=== PATIENT | male | born 1960 | race African-American/Black ===

== ENCOUNTER 2020-06-25 09:54 | Emergency (ER) | payer OTHER, MEDICARE, SELFPAY ==
[2020-06-25 10:12] VITALS: BP 176/110; PULSE 82; RESP 18; TEMP 37.2; O2SAT 95; BMI 28.3
--- NOTE | 2020-06-25 10:51 | ED.NECK ---
HPI - Neck Pain/Injury General Chief Complaint: Neck Pain/Injury Stated Complaint: NECK PAIN Time Seen by Provider: 06/25/20 10:51 History of Present Illness HPI Narrative: Patient complains of neck pain and stiffness for 2 nights, does not recall any injury has no numbness weakness tingling or changes to bowel or bladder He takes methadone and used to be a IV drug abuser but he says it is many many years since he used IV drugs Related Data Home Medications Medication Instructions Recorded Confirmed albuterol sulfate [ProAir HFA] 2 puff INHALATION QID PRN 06/28/20 06/28/20 atenolol 100 mg PO BEDTIME 06/28/20 06/28/20 fluticasone propionate 1 spray INTRANASAL BID 06/28/20 06/28/20 gabapentin 100 mg PO BID 06/28/20 06/28/20 ibuprofen 400 mg PO BID PRN 06/28/20 06/28/20 lidocaine 1 patch TOPICAL DAILY 06/28/20 06/28/20 methadone 57 mg PO DAILY 06/28/20 06/28/20 mirtazapine 15 mg PO BEDTIME 06/28/20 06/28/20 Previous Rx's Medication Instructions Recorded ceftriaxone 1 g IV Q24H #10 ea 06/28/20 morphine 2 mg IV Q6H PRN #25 ml 06/28/20 vancomycin 995 mg IV Q12H #10 ea 06/28/20 Allergies Allergy/AdvReac Type Severity Reaction Status Date / Time No Known Allergies Allergy Verified 06/25/20 10:15 Review of Systems Review of Systems: Positives are neck pain around the middle of his neck worse with movement Negatives are no fever no chills no dizziness no weakness no radiation of pain no numbness weakness or tingling no changes to bowel or bladder no chest pain no shortness of breath no rash PMFSH Past Medical History Source: nursing notes reviewed Medical History Antisocial personality disorder Anxiety COPD (chronic obstructive pulmonary disease) Depression Hepatitis High blood pressure Social History Social History Household Members: None Housing: Apartment Smoking Status: Former smoker Substance Use Type: IV Drugs service: Yes Current occupational status: disabled Physical Exam Vital Signs: Vital Signs: Last Vital Signs Temp 99.0 F 06/25/20 10:12 Pulse 82 06/25/20 10:12 Resp 18 06/25/20 11:34 BP 176/110 H 06/25/20 10:12 Pulse Ox 95 06/25/20 10:12 Body Mass Index 28.3 General appearance is no acute distress, common cooperative The head is normocephalic atraumatic The neck is supple but there is tenderness over the posterior neck diffusely, there is no redness no warmth The chest is clear to auscultation bilaterally with full symmetric E breath sounds Heart no murmur Abdomen soft nontender Extremities is full range of motion x4 Skin no rash 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 strength is 5/5 in both hands The gait and balance are normal, sensation is intact and symmetrical in extremities Cranial nerves 2-12 intact as examine Speech and comprehension are normal Course Course Course Narrative: Patient on methadone who denies having used IV drugs for many years It is explained that we are not the police and if he has been using IV drugs we need no as there is risk of infection or abscess if he is injecting IV drugs he again denies and patient is discharged with most likely musculoskeletal neck pain and given clear warnings to return for any new weakness tingling numbness or pain that is not controlled Discharge Plan Discharge Clinical Impression: Neck pain Patient Disposition: Home, Self-Care Additional Instructions: Follow with your doctor at the [place] as physical therapy may be helpful Return any time any worse condition or any concerns especially if you develops numbness or weakness in either arm or any changes to bowel or bladder Prescriptions: No Action atenolol 100 mg Tablet 100 mg PO BEDTIME RF: 0 mirtazapine 30 mg Tablet 15 mg PO BEDTIME RF: 0 lidocaine 5 % Adhesive Patch,Medicated 1 patch TOPICAL DAILY RF: 0 ibuprofen 400 mg Tablet 400 mg PO BID PRN (Reason: Pain (Scale Score 1-3)) RF: 0 gabapentin 100 mg Capsule 100 mg PO BID RF: 0 methadone 10 mg/mL Concentrate 57 mg PO DAILY RF: 0 albuterol sulfate [ProAir HFA] 90 mcg/actuation Hfa Aerosol Inhaler 2 puff INHALATION QID PRN (Reason: Shortness Of Breath) RF: 0 fluticasone propionate 50 mcg/actuation [place],Suspension 1 spray INTRANASAL BID RF: 0 ceftriaxone 1 gram Recon Soln 1 g IV Q24H Qty: 10 RF: 0 vancomycin 1,000 mg recon soln 995 mg IV Q12H Qty: 10 RF: 0 morphine 2 mg/mL solution 2 mg IV Q6H PRN (Reason: pain) Qty: 25 RF: 0 Interventions: ED Discharge Assessment Last Done: 06/25/20 11:37 Discharge Date/Time: 06/25/20 11:39
[2020-06-25] MEDS: Ketorolac Tromethamine 30 MG/ML VIAL IM (11:06)
[2020-06-25] MEDS: diazePAM 5 MG TABLET 10 MG PO (11:06)
[2020-06-25 11:34] VITALS: RESP 18
--- NOTE | 2020-06-25 11:34 | PC.NURSE ---
PT DOES NOT WANT TO STAY FOR CT SCAN. PT STATES THE MEDS ARE HELPING WITH THE PAIN AT THIS TIME. PT HAS A RIDE COMING AND DOES NOT WANT TO MISS HIS RIDE HOME.
== END 2020-06-25 11:39 | disposition home or self-care (01) ==
PROVIDERS: Emergency Provider Emergency Medicine
DX: M54.2 Cervicalgia (principal)
CPT/HCPCS: 96372; 99283; 99284; J1885

== ENCOUNTER 2020-06-27 15:14 | Inpatient (IN) | payer OTHER, MEDICARE, SELFPAY ==
--- NOTE | ~2020-06-27 | MR_ITS ---
EXAMINATION: MR CERVICAL SPINE WITHOUT AND WITH CONTRAST CLINICAL INFORMATION: History of drug abuse. Neck pain. COMPARISON: Cervical spine CT scan 06/27/2020. TECHNIQUE: Multiplanar MR imaging of the cervical spine was performed without and with contrast. A total of 8 mL Gadavist was utilized for this examination. FINDINGS: There is abnormal thickening and phlegmonous enhancement within the prevertebral soft tissues extending from C1 to C6 without evidence of a discrete drainable fluid collection. The source of disease is difficult to accurately characterize on this examination. Possible involvement of the intervertebral disc space at C4-C5 with associated edema and enhancement of the adjoining endplates along the left anterolateral aspect of the vertebral bodies best illustrated on sagittal postcontrast image 9 of 16 series 8. Alignment is otherwise normal. Vertebral heights are preserved. There is loss of intervertebral disc height and T2 signal intensity at multiple levels within the mid to lower cervical spine. The cervicomedullary junction is normal. Limited visualization of the posterior fossa reveals no abnormal finding. Occipital condyles and lateral C1 masses are intact. Atlantodental joint is normal. C1-C2 articular facets are unremarkable. At C2-C3 the annular contour is normal. No canal or neuroforaminal compromise. At C3-C4 there is a slightly bulging disc. No canal stenosis. Uncovertebral joint spurring and facet degenerative change causes mild to moderate bilateral neuroforaminal encroachment. At C4-C5 there is a diffusely bulging disc which in conjunction with phlegmonous epidural enhancement causes complete effacement of subarachnoid space and severe canal stenosis with apparent compression of the cervical spinal cord. Equivocally increased intramedullary T2 signal changes at this level may represent a manifestation of edema. Severe bilateral neuroforaminal encroachment. At C5-C6 there is a diffusely bulging disc which in conjunction with phlegmonous epidural enhancement causes severe canal stenosis with apparent compression of the cervical spinal cord. Equivocal intramedullary signal changes. Severe bilateral neuroforaminal encroachment. At C6-C7 there is a diffusely bulging disc. Moderate to severe canal stenosis. Uncovertebral joint spurring and facet degenerative change causes severe bilateral neuroforaminal encroachment. At C7-T1 there is a slightly bulging disc. Mild canal stenosis. Uncovertebral joint spurring and facet degenerative change causes moderate bilateral neuroforaminal encroachment. MR/MR cervical spine wo/w con IMPRESSION: There multiple abnormal findings that indicate the likelihood of a spinal infection with abnormal phlegmonous enhancement located within the prevertebral soft tissues extending from C1 to C6. Possible involvement of the C4-C5 intervertebral disc space. There is also circumferential phlegmonous epidural enhancement within the spinal canal which in conjunction with advanced degenerative spondylosis causes severe canal stenosis at C4-C5 and C5-C6 with apparent compression of the cervical spinal cord at these 2 levels. There are equivocally edema and/or myelomalacia involving the cervical cord at C4-C5 and C5-C6. Moderate to severe canal stenosis at C6-C7.
--- NOTE | ~2020-06-27 | CT_ITS ---
EXAMINATION: CT ANGIOGRAM OF THE CHEST WITH AND WITHOUT CONTRAST (CT PULMONARY ANGIOGRAM FOR PE) CLINICAL INFORMATION: Reason for Exam Short of breath elevated D-dimer COMPARISON: None TECHNIQUE: Prior to contrast administration, noncontrast localization images were obtained. Subsequently, multidetector volumetric imaging was performed from the thoracic inlet to below the diaphragms following the administration of 95 mL Omnipaque 350 intravenous contrast. No contrast reaction reported Sagittal, coronal, and MIP oblique sagittal reformatted images were obtained on the CT workstation, uploaded to PACS, and reviewed. This CT examination was performed using dose optimization techniques as appropriate, variously including the following: *Automated exposure control *Adjustment of mA and/or kV according to patient size (this includes techniques or standardized protocols for targeted exams where dose is matched to indication/reason for exam; i.e. extremities or head) *Use of iterative reconstruction technique Total exam dose-length product 337 mGy-cm FINDINGS: QUALITY OF STUDY/CONTRAST BOLUS: Satisfactory. PULMONARY ARTERIES: No central or segmental pulmonary emboli. THORACIC AORTA: No aneurysm or dissection. LUNG: Some bullous changes are present in the upper lung zones and apices. There is one area in the right upper lobe which appears quite bronchiectatic with multiple cysts which could be a focal area of bronchiectasis. In the left upper lobe there is a density which represents mucous impacted in a bronchus (28:120). No worrisome lung masses are seen. Atelectasis is present at the left lung base PLEURA: No pleural effusion or pneumothorax. MEDIASTINUM: Normal heart size. No pericardial effusion. No hilar or mediastinal lymphadenopathy. No evidence of septal bowing or right heart strain. CHEST WALL/AXILLA: No axillary or internal mammary lymphadenopathy. OSSEOUS STRUCTURES: No acute or suspicious osseous abnormality. UPPER ABDOMEN: There is a 1.2 x 0.7 cm prominent right anterior preparacardiac lymph node. No reflux of contrast into the hepatic veins to suggest elevated right heart pressures. CT/CT angio chest PE protocol IMPRESSION: 1. No evidence of pulmonary emboli 2. Underlying COPD with areas of bronchiectasis in the right upper lobe 3. No other etiology is seen to account for the patient's shortness of breath. VTE: The
--- NOTE | ~2020-06-27 | XR_ITS ---
EXAMINATION: XR CHEST CLINICAL INFORMATION: Cough and fever COMPARISON: None TECHNIQUE: Frontal view of the chest was obtained. FINDINGS: The lungs are well expanded. Minimal opacity at the left lung base. No pleural effusion or pneumothorax. No edema. The cardiomediastinal silhouette is within normal limits. XR/XR chest 1V IMPRESSION: Minimal left basilar opacity could represent atelectasis or pneumonia.
--- NOTE | ~2020-06-27 | CT_ITS ---
EXAM: Noncontrast CT scan of the head and cervical spine. INDICATION: Altered mental status and neck pain. History of IV drug abuse. COMPARISON: None TECHNIQUE: Axial slices were obtained from skull base to vertex and displayed. This was followed by helical, multislice, multidetector axial images from the occiput to the upper thorax. Coronal and sagittal reformats of the cervical spine in addition to coronal reformats of the head were obtained at the technologist workstation. DLP: 1246 mGy-cm FINDINGS: HEAD: There is no evidence of acute intracranial hemorrhage or territorial infarction. No abnormal mass effect or midline shift is appreciated. Lainez-white differentiation is well preserved. No extra-axial fluid collections. The ventricular system and cortical sulci are prominent, consistent with age-appropriate volume loss. There are mild areas of low density in the periventricular and subcortical white matter, most consistent with sequelae of microvascular ischemic change. The osseous structures and soft tissues are normal. Prominent ethmoidal sinus disease with mucosal thickening of the sphenoid sinus. Other visualized paranasal sinuses and mastoid air cells are well aerated. SPINE: The cervical spine is visualized in its entirety. There is straightening of the normal cervical lordosis. Alignment is otherwise unremarkable. Normal C1/C2 articulation. Vertebral body heights are maintained. Disc spaces demonstrate moderate narrowing at C4/C5, C5/C6 and C6/C7. There are associated endplate erosions and sclerotic changes. A few small anterior aspects are noted also at these levels. There is only mild facet hypertrophy diffusely. No prevertebral soft tissue swelling. Visualized lung apices demonstrate emphysematous changes. CT/CT cervical spine w con IMPRESSION: 1. No acute intracranial pathology. 2. No fractures or dislocations of the cervical spine. 3. Mild sinus disease. 4. Moderate degenerative changes of the cervical spine centered at C4-C6. This CT examination was performed using dose optimization techniques as appropriate, variously including the following: *Automated exposure control *Adjustment of mA and/or kV according to patient size (this includes techniques or standardized protocols for targeted exams where dose is matched to indication/reason for exam; i.e. extremities or head) *Use of iterative reconstruction technique
[2020-06-27 15:45] VITALS: BP 166/106; PULSE 103; RESP 16; TEMP 39.1; O2SAT 94; BMI 28.2
--- NOTE | 2020-06-27 16:17 | ED_ITS ---
HPI - Fever General Chief Complaint: Fever Stated Complaint: neck pain Time Seen by Provider: 06/27/20 16:17 Source: patient Mode of arrival: ambulatory Limitations: altered mental status (confusion) History of Present Illness HPI Narrative: Patient with not feeling good for last 4 days having neck pain started on the left side now has gone to the right side says the pain is going down in the neck all the way to the lower back and have some weakness in the hands patient is very poor historian , now he has fever and congestion with dry cough and slight short of breath. Patient was [facility] 06[facility]25 diagnosed as musculoskeletal neck pain at that time was afebrile. Patient received COVID vaccine 2 weeks prior patient denies any focal weakness no nausea no vomiting no diarrhea no other family member is sick no history of any injury, patient IV drug user last time use was 1 month ago patient denied use of any cocaine MD elicited complaint: fever Related Data Previous Rx's Medication Instructions Recorded acetaminophen 1,000 mg PO Q6H PRN #30 tab 06/25/20 diazepam [Valium] 10 mg PO TID PRN #10 tab 06/25/20 naproxen [Naprosyn] 500 mg PO BID PRN #20 tab 06/25/20 Allergies Allergy/AdvReac Type Severity Reaction Status Date / Time No Known Allergies Allergy Verified 06/25/20 10:15 Review of Systems Review of Systems: Constitutional : No Weight loss, No Fever, No Chills ENT/Mouth : No sore throat, No Rhinorrhea Eyes: No Eye Pain, No Swelling Cardiovascular : No Chest Pain, no palpitations Respiratory : No Cough, No Sputum, no shortness of breath Gastrointestinal : no Nausea, No Vomiting, No Diarrhea, No abdominal Pain, no black stools Genitourinary : No Dysuria, No Urinary Frequency Musculoskeletal : No joint pain, + Myalgias, No Joint Swelling Skin : No Skin Lesions, No rash Neuro : ++Weakness, No Numbness, No Dizziness, No Headache Psych : No Anxiety/Panic, No Depression Heme/Lymph: No Bruising, No Lymphadenopathy Endocrine : No Polyuria, No Polydipsia All other systems reviewed and are negative [facility] Past Medical History Medical History (Updated 06/28/20 @ 01:34 by Ozzie Gonzales MD) Antisocial personality disorder Anxiety COPD (chronic obstructive pulmonary disease) Depression Hepatitis High blood pressure Social History Social History Smoking Status: Former smoker Use of substances other than those prescribed or required for medical reasons: No Advance Directives: No Advance Directives Information Provided: No Physical Exam Vital Signs: Vital Signs: Last Vital Signs Temp 101.7 F H 06/28/20 01:42 Pulse 84 06/28/20 01:42 Resp 16 06/28/20 00:00 BP 142/79 H 06/28/20 01:42 Pulse Ox 98 06/28/20 01:42 Body Mass Index 28.2 Const: General: ill appearing, lethargic and tired appearing Nutritional Appearance: well nourished Orientation/consciousness: patient oriented x3 and lethargic Limitations: altered mental status HENMT: Head: Yes normal to inspection, Yes normocephalic and Yes atraumatic Ears: hearing grossly normal bilaterally General nose exam: Normal external nose present Face and sinus: Yes normal facial exam Mouth: Normal oral and palatal mucosa present Teeth and gingiva: dentition normal Throat: Yes p osterior oropharynx normal Eyes: General: appearance normal, both eyes and all related structures Neck: Neck: Yes normal visual inspection, Yes no lymphadenopathy, Yes trachea midline, No positive Brudzinski's sign and Yes positive Kernig's sign (Spasm of the neck muscle) Chest: Chest palpation & inspection: normal inspection of the chest and normal palpation of entire chest wall Resp: Effort & Inspection: normal respiratory effort Auscultation: clear to auscultation bilaterally, no crackles, no rales, no rhonchi and no wheezes Cardio: Jugular venous distension: no JVD Palpation: normal PMI Rate: regular rate Rhythm: regular rhythm Heart sounds: S1 normal heart sound present and S2 normal heart sound present Peripheral pulses: Peripheral pulses 2+ throughout GI: Inspection: Yes normal to inspection Palpation (GI): Soft to palpation and nontender Auscultation: normal bowel sounds : General: Yes no CVA tenderness Back/Spine/Pelvis: Back: no CVA tenderness Thoracic/Lumbar Spine: thoracic and lumbar spine normal to inspection, straight leg raise negative bilaterally, No paraspinal muscle tenderness, No thoracic spinal tenderness and No lumbar spinal tenderness Skin: General skin exam: no rashes or lesions noted Neuro: Other: DTR 2+ bilateral General: patient oriented x3, moves all extremities, Normal light touch and pain sensation, no focal motor deficits and CN's II-XI intact bilaterally Cranial nerves: Yes Nystagmus not present and Yes Normal facial strength present Motor exam (neuro): 5/5 motor strength present throughout and Pronator motor function not present Deep tendon reflexes (DTR's): Rt Biceps (C5, C6): 2+, Left biceps reflex intensity grade: 2+, Right brachioradialis reflex intensity grade: 2+ and Left brachioradialis reflex intensity grade: 2+ Plantar Reflex Responses: downgoing: right and left Course Reevaluation(s) Reevaluation #1: Patient denies any chest pain repeat EKG showed positive for Scarbossa criteria with definite change in V3 lead with ST depression which has changed from the previous EKG. Patient denies any chest pain case discussed with Dr. Morgan prosthodontist no need for anticoagulation or transfer at this time patient EKG changes likely from infective cause do the serial troponin levels patient already received bolus dose of heparin Time: 01:50 Procedures Lumbar Puncture Time Out Performed: Yes Patient Position: upright Skin Prep: Povidone-Iodine 1% Local Anesthetic: lidocaine 1% Spinal Needle Gauge: 22G Interspace Used: L3-L4 Fluid Initially Obtained: clear Complications: none MDM - Fever MDM Narrative Medical decision making narrative: Patient is 4 days of atraumatic neck pain mostly localized to sites of the neck able to flex his neck meningeal signs are negative but still complaining of pain with history of history of IV drug use unable to get MRI at this time will do CT neck with IV contrast. To rule out epidural abscess/inflammation although less likely with normal blood counts . Patient WBC count are normal normal lactic acid level. Will do spinal tap to rule out meningitis questionable herpes chest x-ray showed left lower lobe infiltrate a given Rocephin and Zithromax 2200: CT scan without any fluid collection normal WBC count were CSF showed increased protein levels and neutrophils preliminary Gram stain is negative will start him on vancomycin give extra dose of Rocephin pending final results 0030: Case discussed with neurosurgeon at [facility] at this time patient does not need urgent MRI tonight as patient does not have any Myelocompression signs 01:20: Patient sed rate is 70 troponin is 454 without any chest pain or EKG changes will admit patient for medical treatment for possible epidural abscess/meningitis and get MRI in the morning will start patient on heparin prophylactically I Considered epidural abscess/meningitis as a cause of neck pain Differential Diagnosis Differential diagnosis: Likely fever of unknown origin, community acquired pneumonia and viral infection Medical Records Attestation: I reviewed the patient's medical records. Lab Data Attestation: I reviewed the patient's lab results. Result diagrams: 06/27/20 17:33 06/27/20 19:09 Labs: Lab Results 06/27/20 06/27/20 06/27/20 Range/Units 16:58 17:33 17:33 WBC 9.9 (4.8-10.8) X10*3/uL RBC 4.34 L (4.60-5.80) X10*6/uL Hgb 12.7 L (14.0-18.0) g/dl Hct 37.4 L (42-52) % MCV 86.2 (80-98) fL MCH 29.3 (27.0-33.0) pg MCHC 34.0 (31.0-36.0) g/dl RDW 13.2 (11.0-16.0) % Plt Count 135 L (160-400) X10*3/uL MPV 10.7 (9.4-12.4) fL Immature Gran % (Auto) 0.6 H (0.0-0.4) % Neut % (Auto) 81.3 H (45-73) % Lymph % (Auto) 7.2 L (20-40) % Bowman % (Auto) 10.8 (2-11) % Eos % (Auto) 0.0 (0-4) % Baso % (Auto) 0.1 (0-2) % Lymph # (Auto) 0.7 L (1.2-4.9) X10*3/uL Bowman # (Auto) 1.1 (0.1-1.2) X10*3/uL Eos # (Auto) 0.0 (0.0-0.4) X10*3/uL Baso # (Auto) 0.0 (0.0-0.2) X10*3/uL Abs Immat Gran (auto) 0.06 H (0.00-0.03) X10*3/uL Absolute Neuts (auto) 8.1 (2.0-8.3) X10*3/uL Absolute Nucleated RBC 0.000 (0.0-0.012) X10*3/uL Nucleated RBC % (auto) 0.0 (0.0-0.2) /100WBC ESR PT (10.8-13.0) SEC INR (0.9-1.1) APTT (24.1-38.0) SEC D-Dimer NG/ML Sodium (135-145) mmol/L Potassium (3.3-5.1) mmol/L Chloride (96-108) mmol/L Carbon Dioxide (22-29) mmol/L Anion Gap (12-20) BUN (9-16) mg/dL Creatinine (0.5-1.4) mg/dL Estim Creat Clear Calc Estimated GFR Random Glucose (60-115) mg/dL Lactic Acid 1.3 (0.5-2.0) mmol/L Calcium (8.4-10.2) mg/dL Total Bilirubin (0.0-1.0) mg/dL Direct Bilirubin (0.0-0.5) mg/dL AST (5-37) U/L ALT (0-40) U/L Alkaline Phosphatase (39-117) U/L Lactate Dehydrogenase (118-273) U/L Troponin I High Sens (<3.5-35.0) ng/L C-Reactive Protein (< or = 0.50) mg/dL B-Natriuretic Peptide (<100) pg/mL Total Protein (6.5-8.0) g/dL Albumin (3.5-5.0) g/dL Procalcitonin ng/mL CSF Tube Number CSF Volume ML CSF Appearance CSF Color CSF WBC MM*3 CSF RBC MM*3 CSF Neutrophils % CSF Lymphocytes % CSF Monocytes % % CSF Appearance (b) CSF Glucose mg/dL CSF Total Protein (15-45) mg/dL Coronavirus (PCR) NEGATIVE (Negative) Influenza Type A (PCR) NEGATIVE (Negative) Influenza Type B (PCR) NEGATIVE (Negative) RSV RNA Qual (PCR) NEGATIVE (Negative) 06/27/20 06/27/20 06/27/20 Range/Units 17:33 17:33 17:33 WBC (4.8-10.8) X10*3/uL RBC (4.60-5.80) X10*6/uL Hgb (14.0-18.0) g/dl Hct (42-52) % MCV (80-98) fL MCH (27.0-33.0) pg MCHC (31.0-36.0) g/dl RDW (11.0-16.0) % Plt Count (160-400) X10*3/uL MPV (9.4-12.4) fL Immature Gran % (Auto) (0.0-0.4) % Neut % (Auto) (45-73) % Lymph % (Auto) (20-40) % Bowman % (Auto) (2-11) % Eos % (Auto) (0-4) % Baso % (Auto) (0-2) % Lymph # (Auto) (1.2-4.9) X10*3/uL Bowman # (Auto) (0.1-1.2) X10*3/uL Eos # (Auto) (0.0-0.4) X10*3/uL Baso # (Auto) (0.0-0.2) X10*3/uL Abs Immat Gran (auto) (0.00-0.03) X10*3/uL Absolute Neuts (auto) (2.0-8.3) X10*3/uL Absolute Nucleated RBC (0.0-0.012) X10*3/uL Nucleated RBC % (auto) (0.0-0.2) /100WBC ESR Cancelled PT (10.8-13.0) SEC INR (0.9-1.1) APTT (24.1-38.0) SEC D-Dimer NG/ML Sodium (135-145) mmol/L Potassium (3.3-5.1) mmol/L Chloride (96-108) mmol/L Carbon Dioxide (22-29) mmol/L Anion Gap (12-20) BUN (9-16) mg/dL Creatinine (0.5-1.4) mg/dL Estim Creat Clear Calc Estimated GFR Random Glucose (60-115) mg/dL Lactic Acid (0.5-2.0) mmol/L Calcium (8.4-10.2) mg/dL Total Bilirubin (0.0-1.0) mg/dL Direct Bilirubin (0.0-0.5) mg/dL AST (5-37) U/L ALT (0-40) U/L Alkaline Phosphatase (39-117) U/L Lactate Dehydrogenase (118-273) U/L Troponin I High Sens 343.2 H (<3.5-35.0) ng/L C-Reactive Protein (< or = 0.50) mg/dL B-Natriuretic Peptide 788 H (<100) pg/mL Total Protein (6.5-8.0) g/dL Albumin (3.5-5.0) g/dL Procalcitonin 0.44 ng/mL CSF Tube Number CSF Volume ML CSF Appearance CSF Color CSF WBC MM*3 CSF RBC MM*3 CSF Neutrophils % CSF Lymphocytes % CSF Monocytes % % CSF Appearance (b) CSF Glucose mg/dL CSF Total Protein (15-45) mg/dL Coronavirus (PCR) (Negative) Influenza Type A (PCR) (Negative) Influenza Type B (PCR) (Negative) RSV RNA Qual (PCR) (Negative) 06/27/20 06/27/20 06/27/20 Range/Units 19:09 19:09 20:44 WBC (4.8-10.8) X10*3/uL RBC (4.60-5.80) X10*6/uL Hgb (14.0-18.0) g/dl Hct (42-52) % MCV (80-98) fL MCH (27.0-33.0) pg MCHC (31.0-36.0) g/dl RDW (11.0-16.0) % Plt Count (160-400) X10*3/uL MPV (9.4-12.4) fL Immature Gran % (Auto) (0.0-0.4) % Neut % (Auto) (45-73) % Lymph % (Auto) (20-40) % Bowman % (Auto) (2-11) % Eos % (Auto) (0-4) % Baso % (Auto) (0-2) % Lymph # (Auto) (1.2-4.9) X10*3/uL Bowman # (Auto) (0.1-1.2) X10*3/uL Eos # (Auto) (0.0-0.4) X10*3/uL Baso # (Auto) (0.0-0.2) X10*3/uL Abs Immat Gran (auto) (0.00-0.03) X10*3/uL Absolute Neuts (auto) (2.0-8.3) X10*3/uL Absolute Nucleated RBC (0.0-0.012) X10*3/uL Nucleated RBC % (auto) (0.0-0.2) /100WBC ESR PT 16.3 H (10.8-13.0) SEC INR 1.4 H (0.9-1.1) APTT 25.3 (24.1-38.0) SEC D-Dimer 2316 NG/ML Sodium 132 L (135-145) mmol/L Potassium 3.2 L (3.3-5.1) mmol/L Chloride 99 (96-108) mmol/L Carbon Dioxide 22 (22-29) mmol/L Anion Gap 14 (12-20) BUN 15 (9-16) mg/dL Creatinine 0.84 (0.5-1.4) mg/dL Estim Creat Clear Calc 91.4 Estimated GFR > 60 Random Glucose 108 (60-115) mg/dL Lactic Acid (0.5-2.0) mmol/L Calcium 7.7 L (8.4-10.2) mg/dL Total Bilirubin 0.6 (0.0-1.0) mg/dL Direct Bilirubin 0.3 (0.0-0.5) mg/dL AST 57 H (5-37) U/L ALT 14 (0-40) U/L Alkaline Phosphatase 55 (39-117) U/L Lactate Dehydrogenase 232 (118-273) U/L Troponin I High Sens (<3.5-35.0) ng/L C-Reactive Protein 13.48 H (< or = 0.50) mg/dL B-Natriuretic Peptide (<100) pg/mL Total Protein 6.7 (6.5-8.0) g/dL Albumin 3.3 L (3.5-5.0) g/dL Procalcitonin ng/mL CSF Tube Number 2 CSF Volume ML CSF Appearance CSF Color CSF WBC MM*3 CSF RBC MM*3 CSF Neutrophils % CSF Lymphocytes % CSF Monocytes % % CSF Appearance (b) Clear, Colorless CSF Glucose 52 mg/dL CSF Total Protein 134.6 H (15-45) mg/dL Coronavirus (PCR) (Negative) Influenza Type A (PCR) (Negative) Influenza Type B (PCR) (Negative) RSV RNA Qual (PCR) (Negative) 06/27/20 06/27/20 06/27/20 Range/Units 20:44 20:44 23:58 WBC (4.8-10.8) X10*3/uL RBC (4.60-5.80) X10*6/uL Hgb (14.0-18.0) g/dl Hct (42-52) % MCV (80-98) fL MCH (27.0-33.0) pg MCHC (31.0-36.0) g/dl RDW (11.0-16.0) % Plt Count (160-400) X10*3/uL MPV (9.4-12.4) fL Immature Gran % (Auto) (0.0-0.4) % Neut % (Auto) (45-73) % Lymph % (Auto) (20-40) % Bowman % (Auto) (2-11) % Eos % (Auto) (0-4) % Baso % (Auto) (0-2) % Lymph # (Auto) (1.2-4.9) X10*3/uL Bowman # (Auto) (0.1-1.2) X10*3/uL Eos # (Auto) (0.0-0.4) X10*3/uL Baso # (Auto) (0.0-0.2) X10*3/uL Abs Immat Gran (auto) (0.00-0.03) X10*3/uL Absolute Neuts (auto) (2.0-8.3) X10*3/uL Absolute Nucleated RBC (0.0-0.012) X10*3/uL Nucleated RBC % (auto) (0.0-0.2) /100WBC ESR 70 H PT (10.8-13.0) SEC INR (0.9-1.1) APTT (24.1-38.0) SEC D-Dimer NG/ML Sodium (135-145) mmol/L Potassium (3.3-5.1) mmol/L Chloride (96-108) mmol/L Carbon Dioxide (22-29) mmol/L Anion Gap (12-20) BUN (9-16) mg/dL Creatinine (0.5-1.4) mg/dL Estim Creat Clear Calc Estimated GFR Random Glucose (60-115) mg/dL Lactic Acid (0.5-2.0) mmol/L Calcium (8.4-10.2) mg/dL Total Bilirubin (0.0-1.0) mg/dL Direct Bilirubin (0.0-0.5) mg/dL AST (5-37) U/L ALT (0-40) U/L Alkaline Phosphatase (39-117) U/L Lactate Dehydrogenase (118-273) U/L Troponin I High Sens (<3.5-35.0) ng/L C-Reactive Protein (< or = 0.50) mg/dL B-Natriuretic Peptide (<100) pg/mL Total Protein (6.5-8.0) g/dL Albumin (3.5-5.0) g/dL Procalcitonin ng/mL CSF Tube Number 1 4 CSF Volume 1.0 1.0 ML CSF Appearance CLEAR CLEAR CSF Color COLORLESS COLORLESS CSF WBC 24 H* 25 H* MM*3 CSF RBC 3 2 MM*3 CSF Neutrophils 95 97 % CSF Lymphocytes 3 0 % CSF Monocytes % 2 3 % CSF Appearance (b) CSF Glucose mg/dL CSF Total Protein (15-45) mg/dL Coronavirus (PCR) (Negative) Influenza Type A (PCR) (Negative) Influenza Type B (PCR) (Negative) RSV RNA Qual (PCR) (Negative) 06/27/20 Range/Units 23:58 WBC (4.8-10.8) X10*3/uL RBC (4.60-5.80) X10*6/uL Hgb (14.0-18.0) g/dl Hct (42-52) % MCV (80-98) fL MCH (27.0-33.0) pg MCHC (31.0-36.0) g/dl RDW (11.0-16.0) % Plt Count (160-400) X10*3/uL MPV (9.4-12.4) fL Immature Gran % (Auto) (0.0-0.4) % Neut % (Auto) (45-73) % Lymph % (Auto) (20-40) % Bowman % (Auto) (2-11) % Eos % (Auto) (0-4) % Baso % (Auto) (0-2) % Lymph # (Auto) (1.2-4.9) X10*3/uL Bowman # (Auto) (0.1-1.2) X10*3/uL Eos # (Auto) (0.0-0.4) X10*3/uL Baso # (Auto) (0.0-0.2) X10*3/uL Abs Immat Gran (auto) (0.00-0.03) X10*3/uL Absolute Neuts (auto) (2.0-8.3) X10*3/uL Absolute Nucleated RBC (0.0-0.012) X10*3/uL Nucleated RBC % (auto) (0.0-0.2) /100WBC ESR PT (10.8-13.0) SEC INR (0.9-1.1) APTT (24.1-38.0) SEC D-Dimer NG/ML Sodium (135-145) mmol/L Potassium (3.3-5.1) mmol/L Chloride (96-108) mmol/L Carbon Dioxide (22-29) mmol/L Anion Gap (12-20) BUN (9-16) mg/dL Creatinine (0.5-1.4) mg/dL Estim Creat Clear Calc Estimated GFR Random Glucose (60-115) mg/dL Lactic Acid (0.5-2.0) mmol/L Calcium (8.4-10.2) mg/dL Total Bilirubin (0.0-1.0) mg/dL Direct Bilirubin (0.0-0.5) mg/dL AST (5-37) U/L ALT (0-40) U/L Alkaline Phosphatase (39-117) U/L Lactate Dehydrogenase (118-273) U/L Troponin I High Sens 454.0 H (<3.5-35.0) ng/L C-Reactive Protein (< or = 0.50) mg/dL B-Natriuretic Peptide (<100) pg/mL Total Protein (6.5-8.0) g/dL Albumin (3.5-5.0) g/dL Procalcitonin ng/mL CSF Tube Number CSF Volume ML CSF Appearance CSF Color CSF WBC MM*3 CSF RBC MM*3 CSF Neutrophils % CSF Lymphocytes % CSF Monocytes % % CSF Appearance (b) CSF Glucose mg/dL CSF Total Protein (15-45) mg/dL Coronavirus (PCR) (Negative) Influenza Type A (PCR) (Negative) Influenza Type B (PCR) (Negative) RSV RNA Qual (PCR) (Negative) ECG Data ECG #1: Attestation: I personally reviewed and interpreted this ECG as follows: Interpretation: Normal sinus rhythm L bundle-branch block no acute ST elevation or depression suggestive of ischemia normal axis impression LBBB no acute ischemia ECG #2: Attestation: I personally reviewed and interpreted this ECG as follows: Interpretation: Normal sinus rhythm heart rate 84 beats per minute left bundle-branch block ST depression in lead V3 significant change from previous EKG suggestive of ischemia Critical Care Time Critical Care Time Critical Care Time: Yes Total Critical Care Time: 70 Attestation: I spent 70 minutes of critical care, with interventions, assessments, speaking to patient, consultants Discharge Plan Discharge Clinical Impression: Meningitis due to bacteria, Non-ST elevated myocardial infarction (non-STEMI) Bronchiectasis Qualifiers: Bronchiectasis type: with acute lower respiratory infection Qualified Code(s): J47.0 - Bronchiectasis with acute lower respiratory infection Patient Disposition: Admitted As Inpatient
--- NOTE | 2020-06-27 16:18 | ECG_ITS ---
Test Reason : SHORTNESS OF BREATH Blood Pressure : / mmHG Vent. Rate : 098 BPM Atrial Rate : 098 BPM P-R Int : 142 ms QRS Dur : 144 ms QT Int : 406 ms P-R-T Axes : 069 042 187 degrees QTc Int : 518 ms Normal sinus rhythm Possible Left atrial enlargement Left bundle branch block Abnormal ECG No previous ECGs available Referred By: Ozzie Gonzales Electronically Signed By:MIRELLA MCGEE MD
[2020-06-27] MEDS: Acetaminophen 325 MG TABLET 650 MG PO (17:08)
[2020-06-27] MEDS: 0.9 % Sodium Chloride 1,000 ML 999 ML IVCONT ×2 (17:40)
[2020-06-27] MEDS: Ketorolac Tromethamine 30 MG/ML VIAL IVPUSH (17:40)
[2020-06-27 17:41] VITALS: BP 157/96; PULSE 95; RESP 27; O2SAT 95
[2020-06-27 17:46] LABS: Basophils Percent Auto 0.1 % (0-2); Imm Gran Abs Auto 0.06 X10*3/uL (0.00-0.03); Imm Gran Pct Auto 0.6 % (0.0-0.4); PLT CLUMP 1; Red Cell Distribution Width 13.2 % (11.0-16.0); SCAN SMEAR FLAG 1
[2020-06-27 17:47] LABS: Hematocrit 37.4 % (42-52); Hemoglobin 12.7 g/dl (14.0-18.0); Lymphocytes Absolute Auto 0.7 X10*3/uL (1.2-4.9); Lymphocytes Percent Auto 7.2 % (20-40); Mean Corpuscular Hemoglobin 29.3 pg (27.0-33.0); Mean Corpuscular Volume 86.2 fL (80-98); Mean Platelet Volume 10.7 fL (9.4-12.4); Monocytes Absolute Auto 1.1 X10*3/uL (0.1-1.2); Monocytes Percent Auto 10.8 % (2-11); Neutrophils Absolute Auto 8.1 X10*3/uL (2.0-8.3); Neutrophils Percent Auto 81.3 % (45-73); Platelet Count 135 X10*3/uL (160-400); Red Blood Count 4.34 X10*6/uL (4.60-5.80); White Blood Count 9.9 X10*3/uL (4.8-10.8)
[2020-06-27 17:55] LABS: MANUAL DIFF FLAG NO
[2020-06-27] MEDS: cefTRIAXone sodium 1 GM in 0.9 % Sodium Chloride 50 ML IV ×2 (17:55→22:28)
[2020-06-27 18:02] LABS: Lactic Acid 1.3 mmol/L (0.5-2.0)
[2020-06-27 18:25] VITALS: BP 135/77; PULSE 81
[2020-06-27 18:25] LABS: B Type Natriuretic Peptide 788 pg/mL (<100); Troponin-I High Sensitivity 343.2 ng/L (<3.5-35.0)
[2020-06-27] MEDS: Azithromycin 500 MG in 0.9 % Sodium Chloride 250 ML 125 MG IV (18:44)
[2020-06-27 18:45] VITALS: BP 124/72; PULSE 83; RESP 15; TEMP 38.1; O2SAT 94
[2020-06-27 18:49] LABS: Influenza A PCR NEGATIVE (Negative); Influenza B PCR NEGATIVE (Negative); Resp Syncy Virus RNA Qual PCR NEGATIVE (Negative); SARS COV2 PCR INHOUSE NEGATIVE (Negative)
[2020-06-27 19:53] LABS: INTERNATIONAL NORM RATIO 1.4 (0.9-1.1); Prothrombin Time 16.3 SEC (10.8-13.0)
[2020-06-27 19:56] LABS: Partial Thromboplastin Time 25.3 SEC (24.1-38.0)
[2020-06-27 20:01] LABS: Alanine Aminotransferase 14 U/L (0-40); Albumin Level 3.3 g/dL (3.5-5.0); Alkaline Phosphatase 55 U/L (39-117); Anion Gap 14 (12-20); Aspartate Amino Transferase 57 U/L (5-37); Bilirubin Direct 0.3 mg/dL (0.0-0.5); Bilirubin Total 0.6 mg/dL (0.0-1.0); Blood Urea Nitrogen 15 mg/dL (9-16); C Reactive Protein 13.48 mg/dL (< or = 0.50); Calcium 7.7 mg/dL (8.4-10.2); Carbon Dioxide 22 mmol/L (22-29); Chloride 99 mmol/L (96-108); Creatinine Clr Calc Pharmacy 91.4; Estimated Glomerular Filt Rate > 60; Glucose Random 108 mg/dL (60-115); Lactate Dehydrogenase 232 U/L (118-273); Potassium 3.2 mmol/L (3.3-5.1); Sodium 132 mmol/L (135-145); Total Protein 6.7 g/dL (6.5-8.0)
[2020-06-27 20:20] LABS: D Dimer 2316 NG/ML
[2020-06-27 20:24] VITALS: BP 103/68; PULSE 74; RESP 14; TEMP 37.5; O2SAT 93
[2020-06-27 20:26] LABS: Procalcitonin 0.44 ng/mL
[2020-06-27] MEDS: iohexoL 350 MG/ML 100 ML INFUS..BTL IV (21:11)
[2020-06-27 21:28] LABS: Glucose CSF 52 mg/dL; Total Protein CSF 134.6 mg/dL (15-45)
[2020-06-27 22:00] VITALS: BP 121/80; PULSE 71; RESP 18; TEMP 37.7; O2SAT 94
[2020-06-27 22:04] LABS: CSF Appearance Clear, Colorless; CSF Tube # 2
[2020-06-27 22:24] LABS: Appearance CSF CLEAR; CSF Tube # 1; Color CSF COLORLESS
[2020-06-27 22:25] LABS: Red Blood Cell CSF 3 MM*3
[2020-06-27 22:28] LABS: White Blood Cell CSF 24 MM*3
[2020-06-27 22:30] LABS: Appearance CSF CLEAR; CSF Tube # 4; Color CSF COLORLESS; Red Blood Cell CSF 2 MM*3; White Blood Cell CSF 25 MM*3
[2020-06-27 22:37] LABS: CSF Monos 2 %; Lymphocytes CSF 3 %; Neutrophils CSF 95 %
[2020-06-27 22:40] LABS: Neutrophils CSF 97 %
[2020-06-27 22:43] LABS: CSF Monos 3 %
[2020-06-27 22:52] LABS: Lymphocytes CSF 0 %
--- NOTE | 2020-06-27 23:37 | PC.NURSE ---
@[id number] DR HOLLOWAY REQUESTS CALL OUT TO [facility] PT [place] LINE ON THIS PT GRAZYNA ANSWERS,TAKES PT INFO, CALL BACK NUMBER AND ASKS TO SPEAK WITH DR JEWEL HOLLOWAY TAKES OVER CALL RIGHT AWAY
[2020-06-27] MEDS: vancomycin HCL 1,000 MG in 0.9 % Sodium Chloride 250 ML 270 MG IV (23:41)
[2020-06-28] VITALS (7 sets, daily range): BP systolic 110–179; BP diastolic 71–98; PULSE 70–93; RESP 15–23; TEMP 37.3–38.7; O2SAT 94–99
--- NOTE | 2020-06-28 | ECG_ITS ---
Test Reason : BASELINE Blood Pressure : / mmHG Vent. Rate : 084 BPM Atrial Rate : 084 BPM P-R Int : 124 ms QRS Dur : 140 ms QT Int : 584 ms P-R-T Axes : 063 025 229 degrees QTc Int : 690 ms Normal sinus rhythm Possible Left atrial enlargement T wave inversion V3-V4 Deandre 27-JUN-2020 16:45, QT has lengthened Referred By: Ozzie Gonzales Electronically Signed By:MIRELLA MCGEE MD
--- NOTE | 2020-06-28 00:43 | PC.NURSE ---
@ 0011 RETURN CALL FROM JASMINE OF [facility] PT [place] LINE ASKS TO SPEAK WITH DR HOLLOWAY, DR HOLLOWAY TAKES OVER CALL RIGHT AWAY
[2020-06-28 01:20] LABS: Erythrocyte Sedimentation Rate 70 MM/HR (0-15)
[2020-06-28] MEDS: Acetaminophen 325 MG TABLET 650 MG PO (01:40)
[2020-06-28] MEDS: Heparin Sodium,Porcine 5,000 UNIT/ML VIAL 4000 UNIT IVPUSH (02:03)
[2020-06-28] MEDS: 0.9 % Sodium Chloride 1,000 ML 100 ML IVCONT (06:07)
--- NOTE | 2020-06-28 06:47 | P.HPHOSP_ITS ---
History of Present Illness Date of Service: 06/28/20 Chief Complaint: Neck pain This is a 59-year-old male with past medical history of COPD, depression, hepatitis, HTN, who presents to the hospital with complaints of neck pain. Patient reports that his neck pain started on the left radiating to the right, and now radiating to shoulders bilaterally as well as middle back. He reports that he has difficulty with social media senior associate although has no weakness numbness or tingling. Denies losing any control of his bladder or bowel. Denies any fever or chills, reports that this started about 3 days ago, and he was concerned because his social media senior associate was becoming weaker. He denies any headache, no change in vision. He reports that he has been in bed and had difficulty lifting his neck due to the pain. He denies any chest pain, no shortness of breath, he denies any abdominal pain nausea or vomiting, no diarrhea or constipation, no urinary symptoms and no lower extremity edema. He reported to me that he uses IV drugs, last use was about a week ago On arrival to the ED patient has a temperature of 102.3?, heart rate of 103, blood pressure 166/106, and satting 94% on room air Labs are significant for WBC count 9.9, hemoglobin of 12.7, hematocrit 37.4, ESR 70, CRP of 13.48, BNP of 788,, PT of 16.3, INR of 1.4, sodium of 132, potassium of 3.2, AST of 57, he has elevated troponin of 343 that increased to 454 although he denies any chest pain, no EKG changes. Patient had an LP which showed WBC of 25, 97% neutrophils, protein of 134, glucose of 52 COVID-19 negative, Patient has been started on heparin drip, given antibiotics and will be admitted for further management Review of Systems Review of Systems: Yes all other systems are reviewed and are negative [facility] Medical History Antisocial personality disorder Anxiety COPD (chronic obstructive pulmonary disease) Depression Hepatitis High blood pressure Social History Smoking Status: Former smoker Use of substances other than those prescribed or required for medical reasons: No Advance Directives: No Advance Directives Information Provided: No Meds Allergies Allergy/AdvReac Type Severity Reaction Status Date / Time No Known Allergies Allergy Verified 06/25/20 10:15 Active Medications: Current Medications Generic Name Dose Route Start Last Admin Trade Name Ruth PRN Reason Stop Dose Admin Acetaminophen 650 mg 06/28/20 05:15 Acetaminophen 325 Mg Tablet PO Q6H PRN Pain, Mild (Pain Scale 1-3) Docusate Sodium 100 mg 06/28/20 05:15 Docusate Sodium 100 Mg Capsule PO DAILY PRN Constipation Heparin Sodium (Porcine) 5,000 unit 06/28/20 05:15 06/28/20 06:06 Heparin Sodium,Porcine 5,000 Unit/Ml Vial SUBCUT Not Given Q12H MARCIO Sodium Chloride 1,000 mls @ 100 mls/hr 06/28/20 05:15 06/28/20 06:07 Ns IVCONT 100 mls/hr .Q10H MARCIO Administration Ceftriaxone Sodium 1 gm/ 50 mls @ 100 mls/hr 06/28/20 06:30 Sodium Chloride IV Q24H MARCIO Vancomycin HCl 1,250 mg/ 250 mls @ 166.667 mls/hr 06/28/20 06:30 Sodium Chloride IV Q12H MARCIO Morphine Sulfate 4 mg 06/28/20 05:15 Morphine Sulfate 4 Mg/Ml Cartridge IVPUSH Q4H PRN Pain, Severe (Pain Scale 7-10) Ondansetron HCl 4 mg 06/28/20 05:15 Ondansetron Hcl 4 Mg/2 Ml Vial IVPUSH Q8H PRN Nausea and Vomiting Pharmacy Consult 1 each 06/28/20 06:30 Consult Rx Vancomycin Dosing MISCELLANE DAILY PRN Consult order Sodium Chloride 3 ml 06/28/20 08:00 0.9 % Sodium Chloride Flush 3 Ml [facility] Exam Vital Signs and Narrative: Vital Signs: Last Vital Signs Temp 99.2 F 06/28/20 04:16 Pulse 70 06/28/20 05:15 Resp 15 06/28/20 05:15 BP 124/88 06/28/20 05:15 Pulse Ox 94 06/28/20 05:15 Body Mass Index 28.2 Const: General: cooperative and no acute distress Orientation/consciou sness: patient oriented x3 Eyes: General: appearance normal, both eyes and all related structures Neck: Other: limited ROM due to pain, has significant pain on extension of his neck although the presents العلي and Kernig signs negative Yes tender Resp: Effort & Inspection: normal respiratory effort and able to speak in complete sentences Auscultation: clear to auscultation bilaterally Cardio: Rate: regular rate Rhythm: regular rhythm GI: Palpation (GI): Soft to palpation Auscultation: normal bowel sounds Skin: General skin exam: no rashes or lesions noted Neuro: General: patient oriented x3 Cognition (Neuro): normal cognition Extrem: General: Yes normal to inspection and Yes no pedal edema Results Labs CBC and Chem 7: 06/27/20 17:33 06/27/20 19:09 Labs: Laboratory Results - last 24 hr 06/27/20 06/27/20 06/27/20 16:58 17:33 17:33 MCV 86.2 MCH 29.3 MCHC 34.0 RDW 13.2 Plt Count 135 L MPV 10.7 Immature Gran % (Auto) 0.6 H Neut % (Auto) 81.3 H Lymph % (Auto) 7.2 L [place] % (Auto) 10.8 Eos % (Auto) 0.0 Baso % (Auto) 0.1 Lymph # (Auto) 0.7 L [place] # (Auto) 1.1 Eos # (Auto) 0.0 Baso # (Auto) 0.0 Abs Immat Gran (auto) 0.06 H Absolute Neuts (auto) 8.1 Absolute Nucleated RBC 0.000 Nucleated RBC % (auto) 0.0 ESR PT INR APTT D-Dimer Anion Gap Estim Creat Clear Calc Estimated GFR Random Glucose Lactic Acid 1.3 Calcium Total Bilirubin Direct Bilirubin AST ALT Alkaline Phosphatase Lactate Dehydrogenase Troponin I High Sens C-Reactive Protein B-Natriuretic Peptide Total Protein Albumin Procalcitonin CSF Tube Number CSF Volume CSF Appearance CSF Color CSF WBC CSF RBC CSF Neutrophils CSF Lymphocytes CSF Monocytes % CSF Appearance (b) CSF Glucose CSF Total Protein Coronavirus (PCR) NEGATIVE Influenza Type A (PCR) NEGATIVE Influenza Type B (PCR) NEGATIVE RSV RNA Qual (PCR) NEGATIVE 06/27/20 06/27/20 06/27/20 17:33 17:33 17:33 MCV MCH MCHC RDW Plt Count MPV Immature Gran % (Auto) Neut % (Auto) Lymph % (Auto) [place] % (Auto) Eos % (Auto) Baso % (Auto) Lymph # (Auto) [place] # (Auto) Eos # (Auto) Baso # (Auto) Abs Immat Gran (auto) Absolute Neuts (auto) Absolute Nucleated RBC Nucleated RBC % (auto) ESR Cancelled PT INR APTT D-Dimer Anion Gap Estim Creat Clear Calc Estimated GFR Random Glucose Lactic Acid Calcium Total Bilirubin Direct Bilirubin AST ALT Alkaline Phosphatase Lactate Dehydrogenase Troponin I High Sens 343.2 H C-Reactive Protein B-Natriuretic Peptide 788 H Total Protein Albumin Procalcitonin 0.44 CSF Tube Number CSF Volume CSF Appearance CSF Color CSF WBC CSF RBC CSF Neutrophils CSF Lymphocytes CSF Monocytes % CSF Appearance (b) CSF Glucose CSF Total Protein Coronavirus (PCR) Influenza Type A (PCR) Influenza Type B (PCR) RSV RNA Qual (PCR) 06/27/20 06/27/20 06/27/20 19:09 19:09 20:44 MCV MCH MCHC RDW Plt Count MPV Immature Gran % (Auto) Neut % (Auto) Lymph % (Auto) [place] % (Auto) Eos % (Auto) Baso % (Auto) Lymph # (Auto) [place] # (Auto) Eos # (Auto) Baso # (Auto) Abs Immat Gran (auto) Absolute Neuts (auto) Absolute Nucleated RBC Nucleated RBC % (auto) ESR PT 16.3 H INR 1.4 H APTT 25.3 D-Dimer 2316 Anion Gap 14 Estim Creat Clear Calc 91.4 Estimated GFR > 60 Random Glucose 108 Lactic Acid Calcium 7.7 L Total Bilirubin 0.6 Direct Bilirubin 0.3 AST 57 H ALT 14 Alkaline Phosphatase 55 Lactate Dehydrogenase 232 Troponin I High Sens C-Reactive Protein 13.48 H B-Natriuretic Peptide Total Protein 6.7 Albumin 3.3 L Procalcitonin CSF Tube Number 2 CSF Volume CSF Appearance CSF Color CSF WBC CSF RBC CSF Neutrophils CSF Lymphocytes CSF Monocytes % CSF Appearance (b) Clear, Colorless CSF Glucose 52 CSF Total Protein 134.6 H Coronavirus (PCR) Influenza Type A (PCR) Influenza Type B (PCR) RSV RNA Qual (PCR) 06/27/20 06/27/20 06/27/20 20:44 20:44 23:58 MCV MCH MCHC RDW Plt Count MPV Immature Gran % (Auto) Neut % (Auto) Lymph % (Auto) [place] % (Auto) Eos % (Auto) Baso % (Auto) Lymph # (Auto) [place] # (Auto) Eos # (Auto) Baso # (Auto) Abs Immat Gran (auto) Absolute Neuts (auto) Absolute Nucleated RBC Nucleated RBC % (auto) ESR 70 H PT INR APTT D-Dimer Anion Gap Estim Creat Clear Calc Estimated GFR Random Glucose Lactic Acid Calcium Total Bilirubin Direct Bilirubin AST ALT Alkaline Phosphatase Lactate Dehydrogenase Troponin I High Sens C-Reactive Protein B-Natriuretic Peptide Total Protein Albumin Procalcitonin CSF Tube Number 1 4 CSF Volume 1.0 1.0 CSF Appearance CLEAR CLEAR CSF Color COLORLESS COLORLESS CSF WBC 24 H* 25 H* CSF RBC 3 2 CSF Neutrophils 95 97 CSF Lymphocytes 3 0 CSF Monocytes % 2 3 CSF Appearance (b) CSF Glucose CSF Total Protein Coronavirus (PCR) Influenza Type A (PCR) Influenza Type B (PCR) RSV RNA Qual (PCR) 06/27/20 23:58 MCV MCH MCHC RDW Plt Count MPV Immature Gran % (Auto) Neut % (Auto) Lymph % (Auto) [place] % (Auto) Eos % (Auto) Baso % (Auto) Lymph # (Auto) [place] # (Auto) Eos # (Auto) Baso # (Auto) Abs Immat Gran (auto) Absolute Neuts (auto) Absolute Nucleated RBC Nucleated RBC % (auto) ESR PT INR APTT D-Dimer Anion Gap Estim Creat Clear Calc Estimated GFR Random Glucose Lactic Acid Calcium Total Bilirubin Direct Bilirubin AST ALT Alkaline Phosphatase Lactate Dehydrogenase Troponin I High Sens 454.0 H C-Reactive Protein B-Natriuretic Peptide Total Protein Albumin Procalcitonin CSF Tube Number CSF Volume CSF Appearance CSF Color CSF WBC CSF RBC CSF Neutrophils CSF Lymphocytes CSF Monocytes % CSF Appearance (b) CSF Glucose CSF Total Protein Coronavirus (PCR) Influenza Type A (PCR) Influenza Type B (PCR) RSV RNA Qual (PCR) Imaging Radiologist's Impressions: Impressions Chest X-Ray 06/27/20 16:18 IMPRESSION: Minimal left basilar opacity could represent atelectasis or pneumonia. Head CT 06/27/20 20:20 IMPRESSION: 1. No acute intracranial pathology. 2. No fractures or dislocations of the cervical spine. 3. Mild sinus disease. 4. Moderate degenerative changes of the cervical spine centered at C4-C6. This CT examination was performed using dose optimization techniques as appropriate, variously including the following: *Automated exposure control *Adjustment of mA and/or kV according to patient size (this includes techniques or standardized protocols for targeted exams where dose is matched to indication/reason for exam; i.e. extremities or head) *Use of iterative reconstruction technique Cervical Spine CT 06/27/20 20:40 IMPRESSION: 1. No acute intracranial pathology. 2. No fractures or dislocations of the cervical spine. 3. Mild sinus disease. 4. Moderate degenerative changes of the cervical spine centered at C4-C6. This CT examination was performed using dose optimization techniques as appropriate, variously including the following: *Automated exposure control *Adjustment of mA and/or kV according to patient size (this includes techniques or standardized protocols for targeted exams where dose is matched to indication/reason for exam; i.e. extremities or head) *Use of iterative reconstruction technique Chest CTA 06/27/20 20:43 IMPRESSION: 1. No evidence of pulmonary emboli 2. Underlying COPD with areas of bronchiectasis in the right upper lobe 3. No other etiology is seen to account for the patient's shortness of breath. VTE: The Assessment and Plan (1) Meningitis due to bacteria: Status: Acute (2) Non-ST elevated myocardial infarction (non-STEMI): Status: Acute (3) CHF (congestive heart failure): Status: Acute (4) IV drug abuse: Status: Acute This is a 59-year-old male with past medical history as mentioned in H&P presents to the hospital with neck pain. # neck pain - meningitis versus epidural abscess cannot be ruled out - LP suggestive of bacterial infection with elevated neutrophils, elevated glucose, and protein - has elevated ESR and CRP - will start patient on broad-spectrum antibiotics with Vanco, ceftriaxone - patient will need MRI in a.m. to rule out epidural abscess given his history of IV drug abuse, although CT scan of the neck without contrast showed no fluid collection - follow LP cultures # NSTEMI - has elevated troponin - EKG showing left bundle-branch block, unclear old or new asthma previous 1 for comparison - Cardiology consulted by ED, no heparin drip at this time - echocardiogram ordered - cardiology consulted # CHF - no clinical evidence of volume overload - on Lasix 40 mg IV daily - pending echocardiogram - cardiology consult DVT prophylaxis: Heparin GGT
--- NOTE | 2020-06-28 08:30 | CA_ITS ---
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 Severe LV systolic dysfunction with LVEF of 15-20% with grade 1 diastolic dysfunction 2. Normal cardiac valvular Doppler 3. No clear evidence of vegetation on this study 4. Normal RV systolic pressure 5. No gross pericardial effusion Findings Left Ventricle Mildly increased left ventricular cavity size. There is normal left ventricular wall thickness. The left ventricular systolic function is severely decreased. The visually estimated ejection fraction is between 15 20%. There is severe global hypokinesis. There is paradoxical septal motion consistent with a left bundle branch block. Spectral Doppler is indicative of an impaired relaxation filling pattern. E/E prime ratio is <8, consistent with normal filling pressures. Evidence suggests grade I (mild) diastolic dysfunction. Right Ventricle Normal right ventricular cavity size and systolic function. Atria The left atrium is normal in size. There is no evidence of interatrial shunt. The right atrium is normal in size. Aortic Valve The aortic valve was not well visualized. There is no aortic valve stenosis. There is no aortic valve regurgitation. Mitral Valve There is mild anterior and posterior mitral leaflet thickening. There is trace mitral valve regurgitation. There is no mitral valve stenosis. Pulmonic Valve The pulmonic valve was not well visualized. Tricuspid Valve Likely normal tricuspid valve structure and function. There is trace tricuspid valve regurgitation. The right ventricular systolic pressure is 12 mmHg. There is no evidence of pulmonary hypertension. Great Vessels All visible segments of the aorta are normal in size. The pulmonary artery was not well visualized. Venous The inferior vena cava is collapsed, consistent with reduced intravascular volume and collapses greater than 50% with inspiration. Inferior vena cava flow is normal. Pericardium/Pleural There is no evidence of pericardial effusion. Prior Study Comparison No prior study available for comparison. Recommendations, Care & Conclusions Consider a STEVIE if clinically appropriate. Measurements 2D Linear Measurements IVSd: 3.33 0.6-0.9/0.6-1.0 cm LVIDd: 5.98 3.9-5.3/4.2-5.9 cm LVIDd Index: 3.16 2.4-3.2/2.2-3.1 cm/m2 LVIDs: 5.11 2.0-3.6 cm LVPWd: 0.90 0.7-1.1 cm Ao Root: 3.00 2.1-3.5 cm LA Diam: 3.50 2.7-3.8/3.0-4.0 cm LAIDs Index: 1.85 1.5-2.3 cm/m2 LV Mass: 884.83 67-162/88-224 g LV Mass Index: 468.16 43-95/49-115 g/m2 LVOT Diam: 2.00 3.0+(-)1.3 cm 2D Systolic Function EF 4C: 15.50 >55% EF 2C: 26.50 >55% Mitral Valve MV Pk E: 0.50 MV PK A: 0.94 MV Decel Time: 146.00 E/A: 0.50 E'Lateral: 10.60 E'Medial: 4.90 E/E' Med: 10.10 E/E' Lat: 4.70 PHT: 43.00 MVA PHT: 5.12 Decel [place]: 3.39 Aortic Valve AoV Pk Sean: 1.58 AoV Mn Sean: 1.20 AoV VTI: 0.27 AoV Pk Grad: 10.00 Aov Mn Grad: 6.00 DESEAN Cont.VTI: 1.78 LVOT LVOT Pk Sean: 0.99 LVOT Mn Sean: 0.58 LVOT VTI: 0.15 LVOT Pk Grad: 4.00 LVOT Mn Grad: 2.00 LVOT Diam: 2.00 LVOT Area: 3.14 Diastolic Function MV Pk E: 0.50 MV Pk A: 0.94 E/A: 0.50 E'Medial: 4.90 E/E' Med: 10.10 E' Laterial: 10.60 E/E' Lat: 4.70 Tricuspid Valve TR Pk Sean: 1.46 TR Pk Grad: 9.00 RA Press: 3.00 RVSP: 12.00 Great Vessels Aorta Ao Root-2D: 3.00 2.0-3.7 cm Ao Asc: 3.10 2.1-3.4 cm Updated in Other Vendor System with Status of Final David Morgan MD electronically signed on 06/28/2020 2:11:26 PM with status of Final
[2020-06-28 08:38] LABS: Glucose Urine UA NEG (NEG); Leukocyte Esterase Urine NEG (NEG); Nitrite Urine NEG (NEG); Urine Blood 2+ (NEG); Urine Ketones 15 MG/DL (NEG); Urine Protein 2+ MG/DL (NEG-TRACE)
[2020-06-28 08:39] LABS: Color Urine YELLOW
[2020-06-28 08:40] LABS: Appearance Urine HAZY
[2020-06-28 08:42] LABS: Specimen Source CSF
[2020-06-28 08:48] LABS: Mucus Urine TRACE /LPF; Squamous Epithelial Cell Urine TRACE /LPF; UACC CULT YES
[2020-06-28 08:59] LABS: Amphetamine Screen Urine Not Detected (Not Detect); Barbiturates, Urine Not Detected (Not Detect); Benzodiazepines Screen Urine Not Detected (Not Detect); Cannabinoid Screen Urine Not Detected (Not Detect); Cocaine Screen Urine Not Detected (Not Detect); Opiate Screen Urine Not Detected (Not Detect); Phencyclidine Screen Urine Not Detected (Not Detect)
[2020-06-28] MEDS: Potassium Chloride Packet 20 MEQ PACKET 40 MEQ PO ×2 (10:24→12:28)
[2020-06-28] MEDS: 0.9 % Sodium Chloride Flush 3 ML SYRINGE IVFLUSH (10:24)
[2020-06-28] MEDS: Morphine Sulfate 4 MG/ML CARTRIDGE IVPUSH ×2 (10:24→14:50)
[2020-06-28] MEDS: vancomycin HCL 1,000 MG in 0.9 % Sodium Chloride 250 ML 270 MG IV (12:27)
--- NOTE | 2020-06-28 13:02 | PM.DS ---
DS: Providers Provider Date of Service: 07/25/20 Date of admission: 06/28/20 04:05 Primary care physician: OZIEL Byrne Consults: 06/28/20 06:30 Consult to Infectious Diseases Routine Consulting Provider: Luisana Hernandez Reason for consultation: neck pain,+Ve LP, Has provider been notified: No 06/28/20 06:52 Consult to Cardiology Routine Consulting Provider: David Morgan Reason for consultation: NSTEMI Has provider been notified: No DS: Diagnosis Discharge Diagnosis (1) Meningitis due to bacteria: (2) Non-ST elevated myocardial infarction (non-STEMI): Status: Acute (3) CHF (congestive heart failure): Status: Acute (4) IV drug abuse: Status: Acute DS: Medications Discharge Medications Home Medications: Home Medications Medication Instructions Recorded Confirmed albuterol sulfate [ProAir HFA] 2 puff INHALATION QID PRN 06/28/20 06/28/20 atenolol 100 mg PO BEDTIME 06/28/20 06/28/20 fluticasone propionate [Flonase] 1 spray INTRANASAL BID 06/28/20 06/28/20 gabapentin 100 mg PO BID 06/28/20 06/28/20 ibuprofen 400 mg PO BID PRN 06/28/20 06/28/20 lidocaine 1 patch TOPICAL DAILY 06/28/20 06/28/20 methadone 57 mg PO DAILY 06/28/20 06/28/20 mirtazapine 15 mg PO BEDTIME 06/28/20 06/28/20 DS: Summary Hospital Course Hospital Course: HPI by Dr. Rodriguez Chief Complaint: Neck dada This is a 59-year-old male with past medical history of COPD, depression, hepatitis, HTN, who presents to the hospital with complaints of neck pain. Patient reports that his neck pain started on the left radiating to the right, and now radiating to shoulders bilaterally as well as middle back. He reports that he has difficulty with chimney builder although has no weakness numbness or tingling. Denies losing any control of his bladder or bowel. Denies any fever or chills, reports that this started about 3 days ago, and he was concerned because his chimney builder was becoming weaker. He denies any headache, no change in vision. He reports that he has been in bed and had difficulty lifting his neck due to the pain. He denies any chest pain, no shortness of breath, he denies any abdominal pain nausea or vomiting, no diarrhea or constipation, no urinary symptoms and no lower extremity edema. He reports using IV drug a week ago. In ED his temperature was 102.3?, heart rate of 103, blood pressure 166/106, and satting 94% on room air Labs are significant for WBC count 9.9, hemoglobin of 12.7, hematocrit 37.4, ESR 70, CRP of 13.48, BNP of 788,, PT of 16.3, INR of 1.4, sodium of 132, potassium of 3.2, AST of 57, he has elevated troponin of 343 that increased to 454 although he denies any chest pain, no EKG changes. Patient had an LP which showed WBC of 25, 97% neutrophils, protein of 134, glucose of 52 COVID-19 negative. MRI of the neck was later arranged with finding as disucussed below Patient was admitted and given IV Vanco and IV ceftriaxone. Blood cultures so far negative. MRI of the Cervical shows epidural abscess and diskitis with detail as signed listed below. Interventional Radiology is not able to do aspiration here. Patient is reporting weakness in both upper extremities with a strength to decrease to about 3/5 although he is able to raise his hands against gravity he has no loss of bowel function or urinary incontinence. He continued to have a temperature of up to 101 oz of 12:00 o'clock. I discussed the case with Neuro Surgical team at [facility] along the with the hospitalist team at [facility] and he will therefore be transferred to [facility] may need intervention. ID consultation has been requested yet he has not yet been seen. MRI finding as follow There multiple abnormal findings that indicate the likelihood of a spinal infection with abnormal phlegmonous enhancement located within the prevertebral soft tissues extending from C1 to C6. Possible involvement of the C4-C5 intervertebral disc space. There is also circumferential phlegmonous epidural enhancement within the spinal canal which in conjunction with advanced degenerative spondylosis causes severe canal stenosis at C4-C5 and C5-C6 with apparent compression of the cervical spinal cord at these 2 levels. There are equivocally edema and/or myelomalacia involving the cervical cord at C4-C5 and C5-C6. Moderate to severe canal stenosis at C6-C7. Elevated troponin I and BNP levels--patient states that he gets [facility] care at the [facility]. And has been total within the past year that he does have some cardiac issue although he is not specific and what these. He was found to have an incidental cyst highly sensitive troponin I level of 343 repeated was 454 he does not have any chest pain or shortness of breath and does not have any signs or symptoms of heart failure at this time. His EKG showed a left bundle branch block which is presumed to be old. At the present time he has been evaluated by Dr. Morgan from Cardiology and the elevated troponin I level is thought to be related to sepsis and not acute NE. he had a echocardiogram which showed a reduced ejection fraction of about 15% and this is also thought to be not new finding and likely has a cardiomyopathy probably related to chronic substance use. Time Spent with Patient Time attestation: Total time spent providing and/or coordinating discharge services: Discharge coordination time: Greater than 30 minutes Physical Exam Vital Signs: Vital Signs: Last Vital Signs Temp 101.6 F H 06/28/20 12:00 Pulse 93 06/28/20 12:00 Resp 21 H 06/28/20 12:00 BP 179/92 H 06/28/20 12:00 Pulse Ox 96 06/28/20 12:00 Body Mass Index 28.2 Constitutional Awake and Alert, No apparent distress Neck Supple, No lymphadenopathy Cardiovascular no JVD Palpation: abnormal PMI displaced PMI Rate: regular rate Rhythm: regular rhythm Heart sounds: S1 normal heart sound present and S2 normal heart sound present Respiratory Lungs clear, No respiratory distress Gastrointestinal Non tender, Non-distended Skin No rash, he has tenderness in the neck, no crepitus Neurological Alert & oriented x3, strenght in both upper extermit about 3/5, chimney builder is weak in both arm, reflexes at elbow normal, he says he has tingling and numbness in both He does use a cane at baseline, he says his lower extremities are not affected Psychological Appropriate affect DS: Data Data Completed and Pending Labs on day of discharge: Laboratory Results - last 24 hr 06/27/20 06/27/20 06/27/20 16:58 17:33 17:33 WBC 9.9 RBC 4.34 L Hgb 12.7 L Hct 37.4 L MCV 86.2 MCH 29.3 MCHC 34.0 RDW 13.2 Plt Count 135 L MPV 10.7 Immature Gran % (Auto) 0.6 H Neut % (Auto) 81.3 H Lymph % (Auto) 7.2 L [place] % (Auto) 10.8 Eos % (Auto) 0.0 Baso % (Auto) 0.1 Lymph # (Auto) 0.7 L [place] # (Auto) 1.1 Eos # (Auto) 0.0 Baso # (Auto) 0.0 Abs Immat Gran (auto) 0.06 H Absolute Neuts (auto) 8.1 Absolute Nucleated RBC 0.000 Nucleated RBC % (auto) 0.0 ESR PT INR APTT D-Dimer Sodium Potassium Chloride Carbon Dioxide Anion Gap BUN Creatinine Estim Creat Clear Calc Estimated GFR Random Glucose Lactic Acid 1.3 Calcium Total Bilirubin Direct Bilirubin AST ALT Alkaline Phosphatase Lactate Dehydrogenase Troponin I High Sens C-Reactive Protein B-Natriuretic Peptide Total Protein Albumin Procalcitonin Urine Color Urine Appearance Urine pH Ur Specific [place] Urine Protein Urine Glucose (UA) Urine Ketones Urine Blood Urine Nitrite Ur Leukocyte Esterase Urine RBC Urine WBC Ur Squamous Epith Cells Urine Bacteria Urine Mucus CSF Tube Number CSF Volume CSF Appearance CSF Color CSF WBC CSF RBC CSF Neutrophils CSF Lymphocytes CSF Monocytes % CSF Appearance (b) CSF Glucose CSF Total Protein CSF Herpes I DNA (PCR) CSF Herpes II DNA (PCR) CSF Mening/Enceph PCR Urine Opiates Screen Ur Barbiturates Screen Ur Phencyclidine Scrn Ur Amphetamines Screen U Benzodiazepines Scrn Urine Cocaine Screen U Marijuana (THC) Screen Coronavirus (PCR) NEGATIVE Influenza Type A (PCR) NEGATIVE Influenza Type B (PCR) NEGATIVE RSV RNA Qual (PCR) NEGATIVE Body Source 06/27/20 06/27/20 06/27/20 17:33 17:33 17:33 WBC RBC Hgb Hct MCV MCH MCHC RDW Plt Count MPV Immature Gran % (Auto) Neut % (Auto) Lymph % (Auto) [place] % (Auto) Eos % (Auto) Baso % (Auto) Lymph # (Auto) [place] # (Auto) Eos # (Auto) Baso # (Auto) Abs Immat Gran (auto) Absolute Neuts (auto) Absolute Nucleated RBC Nucleated RBC % (auto) ESR Cancelled PT INR APTT D-Dimer Sodium Potassium Chloride Carbon Dioxide Anion Gap BUN Creatinine Estim Creat Clear Calc Estimated GFR Random Glucose Lactic Acid Calcium Total Bilirubin Direct Bilirubin AST ALT Alkaline Phosphatase Lactate Dehydrogenase Troponin I High Sens 343.2 H C-Reactive Protein B-Natriuretic Peptide 788 H Total Protein Albumin Procalcitonin 0.44 Urine Color Urine Appearance Urine pH Ur Specific [place] Urine Protein Urine Glucose (UA) Urine Ketones Urine Blood Urine Nitrite Ur Leukocyte Esterase Urine RBC Urine WBC Ur Squamous Epith Cells Urine Bacteria Urine Mucus CSF Tube Number CSF Volume CSF Appearance CSF Color CSF WBC CSF RBC CSF Neutrophils CSF Lymphocytes CSF Monocytes % CSF Appearance (b) CSF Glucose CSF Total Protein CSF Herpes I DNA (PCR) CSF Herpes II DNA (PCR) CSF Mening/Enceph PCR Urine Opiates Screen Ur Barbiturates Screen Ur Phencyclidine Scrn Ur Amphetamines Screen U Benzodiazepines Scrn Urine Cocaine Screen U Marijuana (THC) Screen Coronavirus (PCR) Influenza Type A (PCR) Influenza Type B (PCR) RSV RNA Qual (PCR) Body Source 06/27/20 06/27/20 06/27/20 19:09 19:09 20:44 WBC RBC Hgb Hct MCV MCH MCHC RDW Plt Count MPV Immature Gran % (Auto) Neut % (Auto) Lymph % (Auto) [place] % (Auto) Eos % (Auto) Baso % (Auto) Lymph # (Auto) [place] # (Auto) Eos # (Auto) Baso # (Auto) Abs Immat Gran (auto) Absolute Neuts (auto) Absolute Nucleated RBC Nucleated RBC % (auto) ESR PT 16.3 H INR 1.4 H APTT 25.3 D-Dimer 2316 Sodium 132 L Potassium 3.2 L Chloride 99 Carbon Dioxide 22 Anion Gap 14 BUN 15 Creatinine 0.84 Estim Creat Clear Calc 91.4 Estimated GFR > 60 Random Glucose 108 Lactic Acid Calcium 7.7 L Total Bilirubin 0.6 Direct Bilirubin 0.3 AST 57 H ALT 14 Alkaline Phosphatase 55 Lactate Dehydrogenase 232 Troponin I High Sens C-Reactive Protein 13.48 H B-Natriuretic Peptide Total Protein 6.7 Albumin 3.3 L Procalcitonin Urine Color Urine Appearance Urine pH Ur Specific [place] Urine Protein Urine Glucose (UA) Urine Ketones Urine Blood Urine Nitrite Ur Leukocyte Esterase Urine RBC Urine WBC Ur Squamous Epith Cells Urine Bacteria Urine Mucus CSF Tube Number 2 CSF Volume CSF Appearance CSF Color CSF WBC CSF RBC CSF Neutrophils CSF Lymphocytes CSF Monocytes % CSF Appearance (b) Clear, Colorless CSF Glucose 52 CSF Total Protein 134.6 H CSF Herpes I DNA (PCR) CSF Herpes II DNA (PCR) CSF Mening/Enceph PCR Urine Opiates Screen Ur Barbiturates Screen Ur Phencyclidine Scrn Ur Amphetamines Screen U Benzodiazepines Scrn Urine Cocaine Screen U Marijuana (THC) Screen Coronavirus (PCR) Influenza Type A (PCR) Influenza Type B (PCR) RSV RNA Qual (PCR) Body Source 06/27/20 06/27/20 06/27/20 20:44 20:44 20:44 WBC RBC Hgb Hct MCV MCH MCHC RDW Plt Count MPV Immature Gran % (Auto) Neut % (Auto) Lymph % (Auto) [place] % (Auto) Eos % (Auto) Baso % (Auto) Lymph # (Auto) [place] # (Auto) Eos # (Auto) Baso # (Auto) Abs Immat Gran (auto) Absolute Neuts (auto) Absolute Nucleated RBC Nucleated RBC % (auto) ESR PT INR APTT D-Dimer Sodium Potassium Chloride Carbon Dioxide Anion Gap BUN Creatinine Estim Creat Clear Calc Estimated GFR Random Glucose Lactic Acid Calcium Total Bilirubin Direct Bilirubin AST ALT Alkaline Phosphatase Lactate Dehydrogenase Troponin I High Sens C-Reactive Protein B-Natriuretic Peptide Total Protein Albumin Procalcitonin Urine Color Urine Appearance Urine pH Ur Specific [place] Urine Protein Urine Glucose (UA) Urine Ketones Urine Blood Urine Nitrite Ur Leukocyte Esterase Urine RBC Urine WBC Ur Squamous Epith Cells Urine Bacteria Urine Mucus CSF Tube Number 1 4 CSF Volume 1.0 1.0 CSF Appearance CLEAR CLEAR CSF Color COLORLESS COLORLESS CSF WBC 24 H* 25 H* CSF RBC 3 2 CSF Neutrophils 95 97 CSF Lymphocytes 3 0 CSF Monocytes % 2 3 CSF Appearance (b) CSF Glucose CSF Total Protein CSF Herpes I DNA (PCR) TNP CSF Herpes II DNA (PCR) TNP CSF Mening/Enceph PCR SEE NOTE Urine Opiates Screen Ur Barbiturates Screen Ur Phencyclidine Scrn Ur Amphetamines Screen U Benzodiazepines Scrn Urine Cocaine Screen U Marijuana (THC) Screen Coronavirus (PCR) Influenza Type A (PCR) Influenza Type B (PCR) RSV RNA Qual (PCR) Body Source CSF 06/27/20 06/27/20 06/28/20 23:58 23:58 08:27 WBC RBC Hgb Hct MCV MCH MCHC RDW Plt Count MPV Immature Gran % (Auto) Neut % (Auto) Lymph % (Auto) [place] % (Auto) Eos % (Auto) Baso % (Auto) Lymph # (Auto) [place] # (Auto) Eos # (Auto) Baso # (Auto) Abs Immat Gran (auto) Absolute Neuts (auto) Absolute Nucleated RBC Nucleated RBC % (auto) ESR 70 H PT INR APTT D-Dimer Sodium Potassium Chloride Carbon Dioxide Anion Gap BUN Creatinine Estim Creat Clear Calc Estimated GFR Random Glucose Lactic Acid Calcium Total Bilirubin Direct Bilirubin AST ALT Alkaline Phosphatase Lactate Dehydrogenase Troponin I High Sens 454.0 H C-Reactive Protein B-Natriuretic Peptide Total Protein Albumin Procalcitonin Urine Color YELLOW Urine Appearance HAZY Urine pH 6.0 Ur Specific [place] 1.020 Urine Protein 2+ H Urine Glucose (UA) NEG Urine Ketones 15 Urine Blood 2+ H Urine Nitrite NEG Ur Leukocyte Esterase NEG Urine RBC 5-9 H Urine WBC 5-9 H Ur Squamous Epith Cells TRACE Urine Bacteria NONE Urine Mucus TRACE CSF Tube Number CSF Volume CSF Appearance CSF Color CSF WBC CSF RBC CSF Neutrophils CSF Lymphocytes CSF Monocytes % CSF Appearance (b) CSF Glucose CSF Total Protein CSF Herpes I DNA (PCR) CSF Herpes II DNA (PCR) CSF Mening/Enceph PCR Urine Opiates Screen Ur Barbiturates Screen Ur Phencyclidine Scrn Ur Amphetamines Screen U Benzodiazepines Scrn Urine Cocaine Screen U Marijuana (THC) Screen Coronavirus (PCR) Influenza Type A (PCR) Influenza Type B (PCR) RSV RNA Qual (PCR) Body Source 06/28/20 08:27 WBC RBC Hgb Hct MCV MCH MCHC RDW Plt Count MPV Immature Gran % (Auto) Neut % (Auto) Lymph % (Auto) [place] % (Auto) Eos % (Auto) Baso % (Auto) Lymph # (Auto) [place] # (Auto) Eos # (Auto) Baso # (Auto) Abs Immat Gran (auto) Absolute Neuts (auto) Absolute Nucleated RBC Nucleated RBC % (auto) ESR PT INR APTT D-Dimer Sodium Potassium Chloride Carbon Dioxide Anion Gap BUN Creatinine Estim Creat Clear Calc Estimated GFR Random Glucose Lactic Acid Calcium Total Bilirubin Direct Bilirubin AST ALT Alkaline Phosphatase Lactate Dehydrogenase Troponin I High Sens C-Reactive Protein B-Natriuretic Peptide Total Protein Albumin Procalcitonin Urine Color Urine Appearance Urine pH Ur Specific [place] Urine Protein Urine Glucose (UA) Urine Ketones Urine Blood Urine Nitrite Ur Leukocyte Esterase Urine RBC Urine WBC Ur Squamous Epith Cells Urine Bacteria Urine Mucus CSF Tube Number CSF Volume CSF Appearance CSF Color CSF WBC CSF RBC CSF Neutrophils CSF Lymphocytes CSF Monocytes % CSF Appearance (b) CSF Glucose CSF Total Protein CSF Herpes I DNA (PCR) CSF Herpes II DNA (PCR) CSF Mening/Enceph PCR Urine Opiates Screen Not Detected Ur Barbiturates Screen Not Detected Ur Phencyclidine Scrn Not Detected Ur Amphetamines Screen Not Detected U Benzodiazepines Scrn Not Detected Urine Cocaine Screen Not Detected U Marijuana (THC) Screen Not Detected Coronavirus (PCR) Influenza Type A (PCR) Influenza Type B (PCR) RSV RNA Qual (PCR) Body Source Preliminary micro results at discharge 06/27/20 20:44 CSF Culture - Preliminary Cerebrospinal Fluid No growth. 06/27/20 17:44 Blood Culture - Preliminary Blood - Venous 06/27/20 17:33 Blood Culture - Preliminary Blood - Venous 4/6CT Cervical spine: CT/CT cervical spine w con IMPRESSION: 1. No acute intracranial pathology. 2. No fractures or dislocations of the cervical spine. 3. Mild sinus disease. 4. Moderate degenerative changes of the cervical spine centered at C4-C6. Chest CTA 06/27 CT/CT angio chest PE protocol IMPRESSION: 1. No evidence of pulmonary emboli 2. Underlying COPD with areas of bronchiectasis in the right upper lobe 3. No other etiology is seen to account for the patient's shortness of breath. Cervical Spine MRI 06/28 MR/MR cervical spine wo/w con IMPRESSION: There multiple abnormal findings that indicate the likelihood of a spinal infection with abnormal phlegmonous enhancement located within the prevertebral soft tissues extending from C1 to C6. Possible involvement of the C4-C5 intervertebral disc space. There is also circumferential phlegmonous epidural enhancement within the spinal canal which in conjunction with advanced degenerative spondylosis causes severe canal stenosis at C4-C5 and C5-C6 with apparent compression of the cervical spinal cord at these 2 levels. There are equivocally edema and/or myelomalacia involving the cervical cord at C4-C5 and C5-C6. Moderate to severe canal stenosis at C6-C7. Discharge Plan Discharge Anticipated Discharge Date/Time: 06/28/20 12:47 Patient Disposition: er Acute [facility] Discharge Diagnosis: epidural abcess Referrals: Eleazar Sylvester PA [Primary Care Provider] - Discharge Medications: New ceftriaxone 1 gram Recon Soln 1 g IV Q24H Qty: 10 RF: 0 vancomycin 1,000 mg recon soln 995 mg IV Q12H Qty: 10 RF: 0 morphine 2 mg/mL solution 2 mg IV Q6H PRN (Reason: pain) Qty: 25 RF: 0 Continued atenolol 100 mg Tablet 100 mg PO BEDTIME RF: 0 mirtazapine 30 mg Tablet 15 mg PO BEDTIME RF: 0 lidocaine 5 % Adhesive Patch,Medicated 1 patch TOPICAL DAILY RF: 0 ibuprofen 400 mg Tablet 400 mg PO BID PRN (Reason: Pain (Scale Score 1-3)) RF: 0 gabapentin 100 mg Capsule 100 mg PO BID RF: 0 methadone 10 mg/mL Concentrate 57 mg PO DAILY RF: 0 albuterol sulfate [ProAir HFA] 90 mcg/actuation Hfa Aerosol Inhaler 2 puff INHALATION QID PRN (Reason: Shortness Of Breath) RF: 0 fluticasone propionate 50 mcg/actuation [place],Suspension 1 spray INTRANASAL BID RF: 0 Discharge Orders: Discharge Order (Routine); Ordered 06/28/20 Ordered By: Corey Owens Diet: advance to usual diet Activity on Discharge: No Running or jogging Stand Alone Forms: Patient Portal Discharge page Care Plan Goals: Neurosurgery assessment for epidural abscess and disckitis Health Concerns: The dural abscess/diskitis epidural abscess/diskitis Plan of Treatment: Transfer to [facility] to be evaluated by the neurosurgical team, to continue IV antibiotic pain control with morphine. Assessment: Epidural abscess Discharge Date/Time: 06/28/20 15:30
--- NOTE | 2020-06-28 13:15 | P.CONCA_ITS ---
History of Present Illness History of Present Illness Date of Service: 06/28/20 Requesting physician: Mariposa Rodriguez Consult reason: troponin elevation Chief complaint: MENINGITIS Narrative: We are asked to see Yesenia in cardiology consultation today because of elevated troponin and left bundle-branch block. Unclear whether this was new onset or not. Patient came to the hospital because of significant neck pain with left arm pain and weakness in his left arm and bilateral upper arm tingling. Patient does notice to be febrile and findings of early sepsis. Subsequent lumbar puncture was performed which showed elevated WBC in there was a concern for meningitis/epidural abscess. Initial cervical spine CT did not show any significant abscess. Patient subsequently underwent cervical spine MRI this morning which shows phlegmonous changes around the cervical spine with some compression of the spinal cord. Patient said he does not feel well. He continues to have bilateral arm weakness now. He has not had any cardiac symptoms. He does have shortness of breath and noted to have bronchiectasis. He has prior history of IV drug abuse but says that he has not had any IV drug abuse in the recent past. He also said he was told within last 6 months to year that he had some issues with the heart but he is not further able to elaborate this. He has not had any chest pain. Bedside echocardiogram preliminary review shows significant LV systolic dysfunction with LVEF of 15-20%. Patient is not aware of this finding. He has never had any prior myocardial infarction or congestive heart failure or history of cardiomyopathy. He says he has been treated for hypertension with atenolol Review of Systems Constitutional: Constitutional: Reports fatigue, Reports lethargy, Reports malaise and Reports weakness ENT: Reports neck pain Cardiovascular: Cardiovascular: Reports no additional cardiovascular complaints and Reports dyspnea Respiratory: Respiratory: Reports cough and Reports dyspnea Gastrointestinal: Gastrointestinal: Reports no additional gastrointestinal complaints Genitourinary: Genitourinary: Reports no additional male genitourinary complaints Musculoskeletal: Musculoskeletal: Reports muscle weakness, Reports neck pain, Reports numbness and Reports tingling Neurologic: Reports numbness, Reports tingling and Reports weakness Endocrine: Endocrine: Reports no additional endocrine complaints and Reports fatigue Hematologic/Lymphatic: Hematologic/Lymphatic: Reports no additional hematologic/lymphatic complaints PMFSH Past Medical History Medical History Antisocial personality disorder Anxiety COPD (chronic obstructive pulmonary disease) Depression Hepatitis High blood pressure Social History Social History Household Members: None Housing: Apartment Do you presently have visiting nurse or other home services: No Smoking Status: Former smoker Use of substances other than those prescribed or required for medical reasons: No Substance Use Type: IV Drugs Substance Use Frequency: Monthly Last Used Substance: Days (ago) Currently Displaying Signs/Symptoms of Drug Intoxication Withdrawal: No Have you been hit, kicked, punched, or otherwise hurt by someone within the past year? If so, by whom?: No Do you feel safe in your current relationship?: No Current Relationship Is there a partner from a previous relationship who is making you feel unsafe now?: No Are you made to feel afraid or neglected: No Advance Directives: No Advance Directives Information Provided: No Do you have thoughts of harming others: None Do you have a plan to hurt others: No Plan Recently lost weight without trying: No Meds Allergies Allergy/AdvReac Type Severity Reaction Status Date / Time No Known Allergies Allergy Verified 06/25/20 10:15 Active Medications: Current Medications Generic Name Dose Route Start Last Admin Trade Name Freq PRN Reason Stop Dose Admin Acetaminophen 650 mg 06/28/20 05:15 Acetaminophen 325 Mg Tablet PO Q6H PRN Pain, Mild (Pain Scale 1-3) Docusate Sodium 100 mg 06/28/20 05:15 Docusate Sodium 100 Mg Capsule PO DAILY PRN Constipation Furosemide 40 mg 06/28/20 09:00 06/28/20 10:24 Furosemide 40 Mg/4 Ml Vial IVPUSH Not Given DAILY MARCIO Protocol Sodium Chloride 1,000 mls @ 100 mls/hr 06/28/20 05:15 06/28/20 06:07 Ns IVCONT 100 mls/hr .Q10H MARCIO Administration Ceftriaxone Sodium 1 gm/ 50 mls @ 100 mls/hr 06/28/20 17:00 Sodium Chloride IV Q24H MARCIO Vancomycin HCl 1,000 mg/ 270 mls @ 270 mls/hr 06/28/20 12:00 06/28/20 12:27 Sodium Chloride IV 270 mls/hr Q12H MARCIO Administration Morphine Sulfate 4 mg 06/28/20 05:15 06/28/20 10:24 Morphine Sulfate 4 Mg/Ml Cartridge IVPUSH 4 mg Q4H PRN Administration Pain, Severe (Pain Scale 7-10) Ondansetron HCl 4 mg 06/28/20 05:15 Ondansetron Hcl 4 Mg/2 Ml Vial IVPUSH Q8H PRN Nausea and Vomiting Pharmacy Consult 1 each 06/28/20 06:30 Consult Rx Vancomycin Dosing MISCELLANE DAILY PRN Consult order Sodium Chloride 3 ml 06/28/20 08:00 06/28/20 10:24 0.9 % Sodium Chloride Flush 3 Ml Syringe IVFLUSH 3 ml QSHIFT [facility] Administration Home Medications Medication Instructions Recorded Confirmed Last Taken Type albuterol sulfate [ProAir HFA] 2 puff INHALATION QID PRN 06/28/20 06/28/20 06/27/20 History atenolol 100 mg PO BEDTIME 06/28/20 06/28/20 06/27/20 History fluticasone propionate [Flonase] 1 spray INTRANASAL BID 06/28/20 06/28/20 06/27/20 History gabapentin 100 mg PO BID 06/28/20 06/28/20 06/27/20 History ibuprofen 400 mg PO BID PRN 06/28/20 06/28/20 06/27/20 History lidocaine 1 patch TOPICAL DAILY 06/28/20 06/28/20 06/27/20 History methadone 57 mg PO DAILY 06/28/20 06/28/20 06/27/20 History mirtazapine 15 mg PO BEDTIME 06/28/20 06/28/20 06/27/20 History Physical Exam Vital Signs: Vital Signs: Last Vital Signs Temp 101.6 F H 06/28/20 12:00 Pulse 93 06/28/20 12:00 Resp 21 H 06/28/20 12:00 BP 179/92 H 06/28/20 12:00 Pulse Ox 96 06/28/20 12:00 Body Mass Index 28.2 Const: General: no acute distress and ill appearing Nutritional Appearance: average body habitus Orientation/consciousness: patient oriented x3 HENMT: Head: Yes normocephalic and Yes atraumatic Neck: Neck: Yes trachea midline and Yes no JVD Resp: Effort & Inspection: decreased respiratory effort Auscultation: crackles (Coarse upper chest field in the anterior region) and bronchovesicular breath sounds Cardio: Jugular venous distension: no JVD Palpation: abnormal PMI displaced PMI Rate: regular rate Rhythm: regular rhythm Heart sounds: S1 normal heart sound present and S2 normal heart sound present GI: Auscultation: normal bowel sounds Skin: General skin exam: no rashes or lesions noted Neuro: General: patient oriented x3 Extrem: General: Yes no clubbing, cyanosis or edema Results Labs and Meds Result diagrams: 06/27/20 17:33 06/27/20 19:09 Lab results: Laboratory Results - last 24 hr 06/27/20 06/27/20 06/27/20 16:58 17:33 17:33 WBC 9.9 RBC 4.34 L Hgb 12.7 L Hct 37.4 L MCV 86.2 MCH 29.3 MCHC 34.0 RDW 13.2 Plt Count 135 L MPV 10.7 Immature Gran % (Auto) 0.6 H Neut % (Auto) 81.3 H Lymph % (Auto) 7.2 L [place] % (Auto) 10.8 Eos % (Auto) 0.0 Baso % (Auto) 0.1 Lymph # (Auto) 0.7 L [place] # (Auto) 1.1 Eos # (Auto) 0.0 Baso # (Auto) 0.0 Abs Immat Gran (auto) 0.06 H Absolute Neuts (auto) 8.1 Absolute Nucleated RBC 0.000 Nucleated RBC % (auto) 0.0 ESR PT INR APTT D-Dimer Sodium Potassium Chloride Carbon Dioxide Anion Gap BUN Creatinine Estim Creat Clear Calc Estimated GFR Random Glucose Lactic Acid 1.3 Calcium Total Bilirubin Direct Bilirubin AST ALT Alkaline Phosphatase Lactate Dehydrogenase Troponin I High Sens C-Reactive Protein B-Natriuretic Peptide Total Protein Albumin Procalcitonin Urine Color Urine Appearance Urine pH Ur Specific [employer] Urine Protein Urine Glucose (UA) Urine Ketones Urine Blood Urine Nitrite Ur Leukocyte Esterase Urine RBC Urine WBC Ur Squamous Epith Cells Urine Bacteria Urine Mucus CSF Tube Number CSF Volume CSF Appearance CSF Color CSF WBC CSF RBC CSF Neutrophils CSF Lymphocytes CSF Monocytes % CSF Appearance (b) CSF Glucose CSF Total Protein CSF Herpes I DNA (PCR) CSF Herpes II DNA (PCR) CSF Mening/Enceph PCR Urine Opiates Screen Ur Barbiturates Screen Ur Phencyclidine Scrn Ur Amphetamines Screen U Benzodiazepines Scrn Urine Cocaine Screen U Marijuana (THC) Screen Coronavirus (PCR) NEGATIVE Influenza Type A (PCR) NEGATIVE Influenza Type B (PCR) NEGATIVE RSV RNA Qual (PCR) NEGATIVE Body Source 06/27/20 06/27/20 06/27/20 17:33 17:33 17:33 WBC RBC Hgb Hct MCV MCH MCHC RDW Plt Count MPV Immature Gran % (Auto) Neut % (Auto) Lymph % (Auto) [place] % (Auto) Eos % (Auto) Baso % (Auto) Lymph # (Auto) [place] # (Auto) Eos # (Auto) Baso # (Auto) Abs Immat Gran (auto) Absolute Neuts (auto) Absolute Nucleated RBC Nucleated RBC % (auto) ESR Cancelled PT INR APTT D-Dimer Sodium Potassium Chloride Carbon Dioxide Anion Gap BUN Creatinine Estim Creat Clear Calc Estimated GFR Random Glucose Lactic Acid Calcium Total Bilirubin Direct Bilirubin AST ALT Alkaline Phosphatase Lactate Dehydrogenase Troponin I High Sens 343.2 H C-Reactive Protein B-Natriuretic Peptide 788 H Total Protein Albumin Procalcitonin 0.44 Urine Color Urine Appearance Urine pH Ur Specific [employer] Urine Protein Urine Glucose (UA) Urine Ketones Urine Blood Urine Nitrite Ur Leukocyte Esterase Urine RBC Urine WBC Ur Squamous Epith Cells Urine Bacteria Urine Mucus CSF Tube Number CSF Volume CSF Appearance CSF Color CSF WBC CSF RBC CSF Neutrophils CSF Lymphocytes CSF Monocytes % CSF Appearance (b) CSF Glucose CSF Total Protein CSF Herpes I DNA (PCR) CSF Herpes II DNA (PCR) CSF Mening/Enceph PCR Urine Opiates Screen Ur Barbiturates Screen Ur Phencyclidine Scrn Ur Amphetamines Screen U Benzodiazepines Scrn Urine Cocaine Screen U Marijuana (THC) Screen Coronavirus (PCR) Influenza Type A (PCR) Influenza Type B (PCR) RSV RNA Qual (PCR) Body Source 06/27/20 06/27/20 06/27/20 19:09 19:09 20:44 WBC RBC Hgb Hct MCV MCH MCHC RDW Plt Count MPV Immature Gran % (Auto) Neut % (Auto) Lymph % (Auto) [place] % (Auto) Eos % (Auto) Baso % (Auto) Lymph # (Auto) [place] # (Auto) Eos # (Auto) Baso # (Auto) Abs Immat Gran (auto) Absolute Neuts (auto) Absolute Nucleated RBC Nucleated RBC % (auto) ESR PT 16.3 H INR 1.4 H APTT 25.3 D-Dimer 2316 Sodium 132 L Potassium 3.2 L Chloride 99 Carbon Dioxide 22 Anion Gap 14 BUN 15 Creatinine 0.84 Estim Creat Clear Calc 91.4 Estimated GFR > 60 Random Glucose 108 Lactic Acid Calcium 7.7 L Total Bilirubin 0.6 Direct Bilirubin 0.3 AST 57 H ALT 14 Alkaline Phosphatase 55 Lactate Dehydrogenase 232 Troponin I High Sens C-Reactive Protein 13.48 H B-Natriuretic Peptide Total Protein 6.7 Albumin 3.3 L Procalcitonin Urine Color Urine Appearance Urine pH Ur Specific [employer] Urine Protein Urine Glucose (UA) Urine Ketones Urine Blood Urine Nitrite Ur Leukocyte Esterase Urine RBC Urine WBC Ur Squamous Epith Cells Urine Bacteria Urine Mucus CSF Tube Number 2 CSF Volume CSF Appearance CSF Color CSF WBC CSF RBC CSF Neutrophils CSF Lymphocytes CSF Monocytes % CSF Appearance (b) Clear, Colorless CSF Glucose 52 CSF Total Protein 134.6 H CSF Herpes I DNA (PCR) CSF Herpes II DNA (PCR) CSF Mening/Enceph PCR Urine Opiates Screen Ur Barbiturates Screen Ur Phencyclidine Scrn Ur Amphetamines Screen U Benzodiazepines Scrn Urine Cocaine Screen U Marijuana (THC) Screen Coronavirus (PCR) Influenza Type A (PCR) Influenza Type B (PCR) RSV RNA Qual (PCR) Body Source 06/27/20 06/27/20 06/27/20 20:44 20:44 20:44 WBC RBC Hgb Hct MCV MCH MCHC RDW Plt Count MPV Immature Gran % (Auto) Neut % (Auto) Lymph % (Auto) [place] % (Auto) Eos % (Auto) Baso % (Auto) Lymph # (Auto) [place] # (Auto) Eos # (Auto) Baso # (Auto) Abs Immat Gran (auto) Absolute Neuts (auto) Absolute Nucleated RBC Nucleated RBC % (auto) ESR PT INR APTT D-Dimer Sodium Potassium Chloride Carbon Dioxide Anion Gap BUN Creatinine Estim Creat Clear Calc Estimated GFR Random Glucose Lactic Acid Calcium Total Bilirubin Direct Bilirubin AST ALT Alkaline Phosphatase Lactate Dehydrogenase Troponin I High Sens C-Reactive Protein B-Natriuretic Peptide Total Protein Albumin Procalcitonin Urine Color Urine Appearance Urine pH Ur Specific [employer] Urine Protein Urine Glucose (UA) Urine Ketones Urine Blood Urine Nitrite Ur Leukocyte Esterase Urine RBC Urine WBC Ur Squamous Epith Cells Urine Bacteria Urine Mucus CSF Tube Number 1 4 CSF Volume 1.0 1.0 CSF Appearance CLEAR CLEAR CSF Color COLORLESS COLORLESS CSF WBC 24 H* 25 H* CSF RBC 3 2 CSF Neutrophils 95 97 CSF Lymphocytes 3 0 CSF Monocytes % 2 3 CSF Appearance (b) CSF Glucose CSF Total Protein CSF Herpes I DNA (PCR) TNP CSF Herpes II DNA (PCR) TNP CSF Mening/Enceph PCR SEE NOTE Urine Opiates Screen Ur Barbiturates Screen Ur Phencyclidine Scrn Ur Amphetamines Screen U Benzodiazepines Scrn Urine Cocaine Screen U Marijuana (THC) Screen Coronavirus (PCR) Influenza Type A (PCR) Influenza Type B (PCR) RSV RNA Qual (PCR) Body Source CSF 06/27/20 06/27/20 06/28/20 23:58 23:58 08:27 WBC RBC Hgb Hct MCV MCH MCHC RDW Plt Count MPV Immature Gran % (Auto) Neut % (Auto) Lymph % (Auto) [place] % (Auto) Eos % (Auto) Baso % (Auto) Lymph # (Auto) [place] # (Auto) Eos # (Auto) Baso # (Auto) Abs Immat Gran (auto) Absolute Neuts (auto) Absolute Nucleated RBC Nucleated RBC % (auto) ESR 70 H PT INR APTT D-Dimer Sodium Potassium Chloride Carbon Dioxide Anion Gap BUN Creatinine Estim Creat Clear Calc Estimated GFR Random Glucose Lactic Acid Calcium Total Bilirubin Direct Bilirubin AST ALT Alkaline Phosphatase Lactate Dehydrogenase Troponin I High Sens 454.0 H C-Reactive Protein B-Natriuretic Peptide Total Protein Albumin Procalcitonin Urine Color YELLOW Urine Appearance HAZY Urine pH 6.[address] [employer] 1.020 Urine Protein 2+ H Urine Glucose (UA) NEG Urine Ketones 15 Urine Blood 2+ H Urine Nitrite NEG Ur Leukocyte Esterase NEG Urine RBC 5-9 H Urine WBC 5-9 H Ur Squamous Epith Cells TRACE Urine Bacteria NONE Urine Mucus TRACE CSF Tube Number CSF Volume CSF Appearance CSF Color CSF WBC CSF RBC CSF Neutrophils CSF Lymphocytes CSF Monocytes % CSF Appearance (b) CSF Glucose CSF Total Protein CSF Herpes I DNA (PCR) CSF Herpes II DNA (PCR) CSF Mening/Enceph PCR Urine Opiates Screen Ur Barbiturates Screen Ur Phencyclidine Scrn Ur Amphetamines Screen U Benzodiazepines Scrn Urine Cocaine Screen U Marijuana (THC) Screen Coronavirus (PCR) Influenza Type A (PCR) Influenza Type B (PCR) RSV RNA Qual (PCR) Body Source 06/28/20 08:27 WBC RBC Hgb Hct MCV MCH MCHC RDW Plt Count MPV Immature Gran % (Auto) Neut % (Auto) Lymph % (Auto) [place] % (Auto) Eos % (Auto) Baso % (Auto) Lymph # (Auto) [place] # (Auto) Eos # (Auto) Baso # (Auto) Abs Immat Gran (auto) Absolute Neuts (auto) Absolute Nucleated RBC Nucleated RBC % (auto) ESR PT INR APTT D-Dimer Sodium Potassium Chloride Carbon Dioxide Anion Gap BUN Creatinine Estim Creat Clear Calc Estimated GFR Random Glucose Lactic Acid Calcium Total Bilirubin Direct Bilirubin AST ALT Alkaline Phosphatase Lactate Dehydrogenase Troponin I High Sens C-Reactive Protein B-Natriuretic Peptide Total Protein Albumin Procalcitonin Urine Color Urine Appearance Urine pH Ur Specific [employer] Urine Protein Urine Glucose (UA) Urine Ketones Urine Blood Urine Nitrite Ur Leukocyte Esterase Urine RBC Urine WBC Ur Squamous Epith Cells Urine Bacteria Urine Mucus CSF Tube Number CSF Volume CSF Appearance CSF Color CSF WBC CSF RBC CSF Neutrophils CSF Lymphocytes CSF Monocytes % CSF Appearance (b) CSF Glucose CSF Total Protein CSF Herpes I DNA (PCR) CSF Herpes II DNA (PCR) CSF Mening/Enceph PCR Urine Opiates Screen Not Detected Ur Barbiturates Screen Not Detected Ur Phencyclidine Scrn Not Detected Ur Amphetamines Screen Not Detected U Benzodiazepines Scrn Not Detected Urine Cocaine Screen Not Detected U Marijuana (THC) Screen Not Detected Coronavirus (PCR) Influenza Type A (PCR) Influenza Type B (PCR) RSV RNA Qual (PCR) Body Source EKG 1. Shows normal sinus rhythm with left bundle-branch block EKG 2. Shows normal sinus rhythm with left bundle-branch block with T-wave changes Imaging Radiologist's impression: Impressions Chest X-Ray 06/27/20 16:18 IMPRESSION: Minimal left basilar opacity could represent atelectasis or pneumonia. Head CT 06/27/20 20:20 IMPRESSION: 1. No acute intracranial pathology. 2. No fractures or dislocations of the cervical spine. 3. Mild sinus disease. 4. Moderate degenerative changes of the cervical spine centered at C4-C6. This CT examination was performed using dose optimization techniques as appropriate, variously including the following: *Automated exposure control *Adjustment of mA and/or kV according to patient size (this includes techniques or standardized protocols for targeted exams where dose is matched to indication/reason for exam; i.e. extremities or head) *Use of iterative reconstruction technique Cervical Spine CT 06/27/20 20:40 IMPRESSION: 1. No acute intracranial pathology. 2. No fractures or dislocations of the cervical spine. 3. Mild sinus disease. 4. Moderate degenerative changes of the cervical spine centered at C4-C6. This CT examination was performed using dose optimization techniques as appropriate, variously including the following: *Automated exposure control *Adjustment of mA and/or kV according to patient size (this includes techniques or standardized protocols for targeted exams where dose is matched to indication/reason for exam; i.e. extremities or head) *Use of iterative reconstruction technique Chest CTA 06/27/20 20:43 IMPRESSION: 1. No evidence of pulmonary emboli 2. Underlying COPD with areas of bronchiectasis in the right upper lobe 3. No other etiology is seen to account for the patient's shortness of breath. VTE: The Cervical Spine MRI 06/28/20 05:15 IMPRESSION: There multiple abnormal findings that indicate the likelihood of a spinal infection with abnormal phlegmonous enhancement located within the prevertebral soft tissues extending from C1 to C6. Possible involvement of the C4-C5 intervertebral disc space. There is also circumferential phlegmonous epidural enhancement within the spinal canal which in conjunction with advanced degenerative spondylosis causes severe canal stenosis at C4-C5 and C5-C6 with apparent compression of the cervical spinal cord at these 2 levels. There are equivocally edema and/or myelomalacia involving the cervical cord at C4-C5 and C5-C6. Moderate to severe canal stenosis at C6-C7. Assessment and Plan (1) Cardiomyopathy: Status: Acute Echocardiogram finding consistent with cardiomyopathy. This appears to be more of a diffuse process. A QT of cardiomyopathy is unclear, patient does say that he was told that he might have a weak heart within last 6 months to a year at [place]. Do not have any test results from there. Currently does not appear to be in overt heart failure. His main current issue appears to be related to cervical spine abscess which needs to be addressed quickly and urgently. Discussed with the hospitalist team who will arrange for transfer to [facility] urgently. Meanwhile continue beta-lita therapy, however switch atenolol to carvedilol therapy. Also add renin angiotensin system antagonist such as Diovan. Heart failure education should be provided to the patient once his clinical status improves. Elevated BNP without overt heart failure most likely due to cardiomyopathy and acute medical illness. Will require outpatient ischemic workup. (2) Elevated troponin: Status: Acute Elevated and flat troponin in the setting of underlying severe LV systolic dysfunction with acute medical illness with sepsis like picture and epidural abscess. Troponin related to the same. Not suggestive of primary acute coronary syndrome. No need for anticoagulation. (3) Abscess in epidural space of cervical spine: Status: Acute Epidural abscess with cervical spinal cord compression. Symptoms. Patient needs to be evaluated by neuro surgery urgently. Will follow up once released from the hospital.
--- NOTE | 2020-06-28 13:27 | MHC.CM.PN ---
pt is being transferred to [facility].
== END 2020-06-28 15:30 | disposition short-term general hospital (02) | DRG 871 ==
LOC: HO.ED 22:46 → HO.EDOVER 06-28 06:41 → HO.S3 06-28 08:47
PROVIDERS: Admitting Provider Internal Medicine; Emergency Provider Internal Medicine; PCP Physician Assistant; Visit Provider Internal Medicine
DX: A41.9 Sepsis, unspecified organism (principal); G06.1 Intraspinal abscess and granuloma; F11.20 Opioid dependence, uncomplicated; I42.7 Cardiomyopathy due to drug and external agent; M46.42 Discitis, unspecified, cervical region; F32.9 Major depressive disorder, single episode, unspecified; I11.0 Hypertensive heart disease with heart failure; I50.9 Heart failure, unspecified; Z20.822 Contact with and (suspected) exposure to COVID-19; Z79.1 Long term (current) use of non-steroidal anti-inflammatories (NSAID); Z79.52 Long term (current) use of systemic steroids; Z79.899 Other long term (current) drug therapy
CPT/HCPCS: 0241U; 36415; 70450; 71045; 71275; 72126; 72156; 80048; 80076; 80307; 81001; 82945; 83605; 83615; 83880; 84145; 84157; 84484; 85025; 85379; 85610; 85652; 85730; 86140; 87015; 87040; 87070; 87077; 87086; 87186; 87205; 87529; 89051; 93005; 93306; 96365; 96366; 96367; 96368; 96374; 96375; 99284; 99291; A9585; J0456; J0696; J1885; J2270; J3370; Q9967